=== PATIENT | male | born 1945 | race Caucasian/White ===

== ENCOUNTER 2022-01-29 13:33 | Observation (INO) ==
[2022-01-29 14:12] LABS: Basophils # (auto) 0.02 K/uL (0-0.2); Basophils % (auto) 0.3 %; Eosinophils # (auto) 0.04 K/uL (0-0.50); Eosinophils % (auto) 0.7 %; Hemoglobin 14.9 g/dl (14.0-18.0); Immature Granulocytes # (auto) 0.02 K/uL (0.00-0.02); Immature Granulocytes % (auto) 0.3 %; Lymphocytes # (auto) 1.05 K/uL (1.2-3.4); Lymphocytes % (auto) 17.7 %; Mean Corpuscular Hgb Conc 35.5 g/dL (32.0-36.0); Mean Corpuscular Volume 87.5 fL (80.0-100.0); Mean Platelet Volume 10.1 fL (9.4-12.4); Monocytes # (auto) 0.47 K/uL (0.24-0.82); Monocytes % (auto) 7.9 %; Neutrophils # (auto) 4.34 K/uL (1.4-6.5); Neutrophils % (auto) 73.1 %; Platelet Count 196 K/uL (130-400); RDW Coefficient of Variation 13.3 % (11.5-14.5); White Blood Count 5.94 K/ul (4.8-10.8)
[2022-01-29 14:37] LABS: Albumin Globulin Ratio 1.7 (0.9-2); Albumin Level 4.7 gm/dl (3.4-5.0); BUN Creatinine Ratio 14.3 (10-20); Bilirubin,Total 1.1 mg/dl (0.2-1.0); Calcium 9.5 mg/dl (8.5-10.1); Creatinine Clr Calc Pharmacy 65.4 ml/min; Est GFR (Non-African American) 68.1 ml/min; Globulin 2.7 gm/dl (2.5-4.0); Potassium 3.9 mmol/L (3.5-5.1); Total Protein 7.4 gm/dl (6.0-8.3)
[2022-01-29] MEDS ORDERED: OPTIRAY 320 500ml IV ONE (14:37)
--- NOTE | 2022-01-29 14:42 | XRay Report ---
XR chest 1V portable HISTORY: Atypical Chest Pain COMPARISON: None. FINDINGS: The lungs are clear. Cardiac silhouette is normal in size. No pleural effusions. No pneumot horax. IMPRESSION: No acute process. ACT 112: Negative or not required by law. Electronically signed by: Jack Arriaga M.D. 01/29/2022 2:41 PM
--- NOTE | 2022-01-29 14:43 | Emergency Department Note ---
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 Last he had some blurry vision of the right eye. He saw an sales and service specialist who sent him to an secretary of state who saw him today and diagnosed him with a central retinal artery occlusion. He was referred in for complete stroke work-up. He denies any headache. No weakness or numbness in the arms or legs. No chest pain or shortness of breath. No nausea, vomiting, or diarrhea. No other exacerbating or remitting factors. ROS: See above HPI for pertinent positives & negatives. A total of 10 systems reviewed and were otherwise negative. PAST MEDICAL HISTORY:See Below PAST SURGICAL HISTORY:See Below FAMILY HISTORY:See Below SOCIAL HISTORY:See Below HOME MEDICATIONS:See Below ALLERGIES:See Below VITALS:See Below PHYSICAL EXAMINATION: GENERAL: Sitting up in bed, alert, well appearing, well nourished, no distress, non-toxic EYE EXAM: normal conjunctiva. PERRL and EOM's intact. OROPHARYNX: no exudate, no erythema, lips, buccal mucosa, and tongue normal and mucous membranes are moist NECK: supple, no nuchal rigidity, no adenopathy, non-tender LUNGS: Clear to auscultation. Normal chest wall mechanics HEART: no murmurs, S1 normal and S2 normal ABDOMEN: abdomen soft, non-tender, normo-active bowel sounds, no masses, no rebound or guarding. BACK: Back is symmetrical on inspection and there is no deformity, no midline tenderness, no CVA tenderness. SKIN: no rashes and no bruising UPPER EXTREMITIES: upper extremities are grossly normal. LOWER EXTREMITIES: No pitting edema. NEURO EXAM: Normal sensorium, cranial nerves II-XI intact, normal speech, no weakness of arms, no weakness of legs. No drift. Finger to nose intact. Gross sensation intact. 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 Patient is completely neurologically intact other than the visual issues of his right eye. IV was established blood work is obtained. Labs show no significant leukocytosis or anemia. BMP along with LFTs bilirubin and lipase was remarkable for T bili slightly up at 1.1. CT as well as angios of the head and neck were performed. Blood pressures were elevated at 211. Allowed for permissive hypertension with the central retinal artery occlusion. CT showed short segment occlusions with multiple intracranial vessels. Systolic pressures remain just close to 200 and then jumped to 30. Patient was given aspirin. With 230 did order 5 hydralazine to bring the pressure back down below 220. Troponin was elevated and a question of this secondary to the elevated blood pressure but cannot be certain. He has no chest pain or shortness of breath. No other complaints at this time. Again we will t o try to allow for permissive hypertension in light of the recent stroke and multivessel disease within the brain. Triage Nursing notes reviewed. Limited review of prior medical records performed Vital Signs: reviewed and remarkable for HTN Differential diagnosis: Differential Diagnosis includes but is not limited to ischemic Stroke, hemorrhagic stroke, bells palsy, mass, neoplasm, migraine headache, seizure, subarachnoid hemorrhage, TIA, and transient global amnesia. ER treatment provided: See below Diagnostics interpreted by me: ECG: Sinus rhythm rate 83 Left axis No PVCs Septal Q waves QTC 455 Cardiac Monitoring: An order was placed for continuous cardiac monitoring. The monitor shows a rate of 89 with sinus rhythm. Laboratory studies: As stated above and show below. Imaging studies: CTs of the head and neck as described above and below Severe multifocal stenoses versus short segment occlusion with distal reconstitution within numerous intracranial vessels, as detailed above, including the right ophthalmic/retinal arteries. Statistically, this due to atherosclerosis. However, plaque is not evident by CT and therefore other etiologies such as vasculitis or vasospasm cannot be excluded. Consultation(s): Discussed with Dr. Orr for further evaluation Procedures: none Critical Care: None Past Med/Surg History Social History Smoking Status: Never smoker Preferred Language: Nicaraguan Feels Safe at Home: Yes Allergies Allergies Allergy/AdvReac Type Severity Reaction Status Date / Time No Known Allergies Allergy Unverified 01/29/22 15:58 Home Meds Home Medications Medication Instructions Recorded Confirmed cholecalciferol (vitamin D3) 25 25 mcg PO DAILY 01/29/22 01/29/22 mcg (1,000 unit) tablet (Vitamin D3) cyanocobalamin (vitamin B-12) 500 500 mcg PO DAILY 01/29/22 01/29/22 mcg tablet (Vitamin B-12) multivitamin 1 tab PO DAILY 01/29/22 01/29/22 Results & Data (ED) Vital Signs Vital Signs - 24 hr 01/29/22 13:36 01/29/22 13:55 01/29/22 13:57 Pulse Rate 99 H Pulse Rate [Left Apical] 87 Pulse Rhythm [Left Apical] Regular Pulse Strength [Left Apical] Normal Respiratory Rate 18 20 Respiratory Effort / Characteristics Non-Labored Spontaneous Respiratory Depth Normal Blood Pressure 218/133 H Blood Pressure [Left Arm] 212/123 H Blood Pressure Mean 161 Blood Pressure Mean [Left Arm] 152 Pulse Oximetry 94 96 97 Oxygen Delivery Method Room Air Room Air Room Air Sepsis Recent Fever Within 48 Hours No Sepsis New/Unexplained Change in Mental Status N/A Sepsis Action Taken by Nursing No Action Required 01/29/22 15:52 Pulse Rate Pulse Rate [Left Apical] 74 Pulse Rhythm [Left Apical] Pulse Strength [Left Apical] Respiratory Rate 18 Respiratory Effort / Characteristics Respiratory Depth Blood Pressure Blood Pressure [Left Arm] 230/135 H Blood Pressure Mean Blood Pressure Mean [Left Arm] 166 Pulse Oximetry 96 Oxygen Delivery Method Room Air Sepsis Recent Fever Within 48 Hours Sepsis New/Unexplained Change in Mental Status Sepsis Action Taken by Nursing Laboratory Data Result diagrams: 01/29/22 14:00 01/29/22 14:00 Lab Results 01/29/22 01/29/22 01/29/22 Range/Units 14:00 14:00 14:00 WBC 5.94 (4.8-10.8) K/ul RBC 4.80 (4.63-6.08) M/uL Hgb 14.9 (14.0-18.0) g/dl Hct 42.0 (40.1-51.0) % MCV 87.5 (80.0-100.0) fL MCH 31.0 (25.0-34.0) pg MCHC 35.5 (32.0-36.0) g/dL RDW Std Deviation 43.0 (36.4-46.3) fL RDW Coeff of Ellie 13.3 (11.5-14.5) % Plt Count 196 (130-400) K/uL MPV 10.1 (9.4-12.4) fL Immature Gran % (Auto) 0.3 % Neut % (Auto) 73.1 % Lymph % (Auto) 17.7 % Angelina % (Auto) 7.9 % Eos % (Auto) 0.7 % Baso % (Auto) 0.3 % Neut # (Auto) 4.34 (1.4-6.5) K/uL Lymph # (Auto) 1.05 L (1.2-3.4) K/uL Angelina # (Auto) 0.47 (0.24-0.82) K/uL Eos # (Auto) 0.04 (0-0.50) K/uL Baso # (Auto) 0.02 (0-0.2) K/uL Immature Gran # (Auto) 0.02 (0.00-0.02) K/uL Sodium 139 (136-145) mmol/L Potassium 3.9 (3.5-5.1) mmol/L Chloride 105 (98-107) mmol/L Carbon Dioxide 26 (21-32) mmol/L Anion Gap 8 (3-11) BUN 15 (6-23) mg/dl Creatinine 1.05 (0.6-1.4) mg/dl Est Cr Clr Drug Dosing 65.4 ml/min Est GFR ( Amer) 79.0 ml/min Est GFR (Non-Af Amer) 68.1 ml/min BUN/Creatinine Ratio 14.3 (10-20) Glucose 91 (70-99(Fasting)) mg/dl Calcium 9.5 (8.5-10.1) mg/dl Total Bilirubin 1.1 H (0.2-1.0) mg/dl AST 24 (13-39) U/L ALT 19 (7-52) U/L Alkaline Phosphatase 71 (34-104) U/L Troponin I High Sens 63.6 H* (0-20) pg/ml C-Reactive Protein < 0.50 (0-0.5) mg/dl Total Protein 7.4 (6.0-8.3) gm/dl Albumin 4.7 (3.4-5.0) gm/dl Globulin 2.7 (2.5-4.0) gm/dl Albumin/Globulin Ratio 1.7 (0.9-2) Lipase 24 (11-82) U/L SARS-CoV-2, RNA, NAAT (NEGATIVE) 01/29/22 Range/Units 14:48 WBC (4.8-10.8) K/ul RBC (4.63-6.08) M/uL Hgb (14.0-18.0) g/dl Hct (40.1-51.0) % MCV (80.0-100.0) fL MCH (25.0-34.0) pg MCHC (32.0-36.0) g/dL RDW Std Deviation (36.4-46.3) fL RDW Coeff of Ellie (11.5-14.5) % Plt Count (130-400) K/uL MPV (9.4-12.4) fL Immature Gran % (Auto) % Neut % (Auto) % Lymph % (Auto) % Angelina % (Auto) % Eos % (Auto) % Baso % (Auto) % Neut # (Auto) (1.4-6.5) K/uL Lymph # (Auto) (1.2-3.4) K/uL Angelina # (Auto) (0.24-0.82) K/uL Eos # (Auto) (0-0.50) K/uL Baso # (Auto) (0-0.2) K/uL Immature Gran # (Auto) (0.00-0.02) K/uL Sodium (136-145) mmol/L Potassium (3.5-5.1) mmol/L Chloride (98-107) mmol/L Carbon Dioxide (21-32) mmol/L Anion Gap (3-11) BUN (6-23) mg/dl Creatinine (0.6-1.4) mg/dl Est Cr Clr Drug Dosing ml/min Est GFR ( Amer) ml/min Est GFR (Non-Af Amer) ml/min BUN/Creatinine Ratio (10-20) Glucose (70-99(Fasting)) mg/dl Calcium (8.5-10.1) mg/dl Total Bilirubin (0.2-1.0) mg/dl AST (13-39) U/L ALT (7-52) U/L Alkaline Phosphatase (34-104) U/L Troponin I High Sens (0-20) pg/ml C-Reactive Protein (0-0.5) mg/dl Total Protein (6.0-8.3) gm/dl Albumin (3.4-5.0) gm/dl Globulin (2.5-4.0) gm/dl Albumin/Globulin Ratio (0.9-2) Lipase (11-82) U/L SARS-CoV-2, RNA, NAAT NEGATIVE (NEGATIVE) Administered Medications Discontinued Medications Ioversol (Optiray 320 500ml) 105 ml IV ONCE ONE Stop: 01/29/22 14:38 Last Admin: 01/29/22 14:38 Dose: 105 ml Documented By: [facility] Imaging Data Radiologist's Impression: Chest X-Ray 01/29/22 13:48 XR chest 1V portable HISTORY: Atypical Chest Pain COMPARISON: None. FINDINGS: The lungs are clear. Cardiac silhouette is normal in size. No pleural effusions. No pneumothorax. IMPRESSION: No acute process. ACT 112: Negative or not required by law. Electronically signed by: Jack Arriaga M.D. 01/29/2022 2:41 PM Head CTA 01/29/22 14:08 CT angio head wo/w CLINICAL HISTORY: Right eye central retinal artery occlusion. COMPARISON STUDY: No previous studies for comparison. TECHNIQUE: Unenhanced and arterial phase imaging of the head was performed. Intravenous injection of 105 cc Optiray 320 IV was uneventful. Sagittal and coronal reconstructions were viewed as well as maximal intensity projections on an independent 3-D workstation. Automated exposure control was utilized for the study. A dose lowering technique was utilized adhering to the principles of ALARA. FINDINGS: No acute intracranial hemorrhage, midline shift or mass effect is present. Ventricular system is unremarkable. Basal cisterns are patent. There are no extra axial collections. Hernandez-white differentiation is preserved. There are no findings to suggest acute dural sinus thrombosis or acute territorial infarct. Note is made of severe multifocal stenoses within the intracranial vessels. At several locations, there is possible short segment occlusion with distal reconstitution. These stenoses involve the right ophthalmic/retinal artery, left A2 segment, left sylvian branches, distal right vertebral artery and the bilateral posterior cerebral arteries. Multifocal vascular irregularity is noted. There is no intracranial aneurysm. No intraluminal thrombus is identified by CT. No visible plaque is identified by CT. Major dural sinuses are patent. There are no significant calvarial abnormalities. There is minimal ethmoid sinus mucosal thickening. IMPRESSION: 1. No acute intracranial hemorrhage or mass effect. 2. Severe multifocal stenoses versus short segment occlusion with distal reconstitution within numerous intracranial vessels, as detailed above, including the right ophthalmic/retinal arteries. Statistically, this due to atherosclerosis. However, plaque is not evident by CT and therefore other etiologies such as vasculitis or vasospasm cannot be excluded. ACT 112: Negative or not required by law. Electronically signed by: Kunal Cool M.D. 01/29/2022 3:06 PM Neck CTA 01/29/22 14:08 CT angio neck with con CLINICAL HISTORY: 76 years-old Male with crao r eye. Acute strokelike symptoms COMPARISON STUDY: CTA had of same day TECHNIQUE: Following the IV administration of 105 cc of Optiray, CT angiogram of the neck was performed from the aortic arch to the skull base. Images are reviewed in the axial, sagittal, and coronal planes. 3-D MIPS images are created and assessed. IV contrast was administered without complication. All measurements were calculated based on NASCET criteria. A dose lowering technique was utilized adhering to the principles of ALARA. FINDINGS: Imaged opacified pulmonary arterial tree is unremarkable. Atherosclerosis of the thoracic aortic arch. There is patency of the innominate and imaged subclavian arteries. Patent common carotid arteries. Mild atherosclerotic plaque of the left carotid bulb and proximal left ICA without significant stenosis. The internal carotid arteries are otherwise unremarkable and widely patent. Patent and codominant vertebral arteries with atherosclerotic plaque at the origin of the left vertebral artery. 60% focal stenosis of the V4 segment right vertebral artery, image 313. Lung apices are clear. No pneumothorax. Unremarkable soft tissues. Degenerative changes of the cervical spine. IMPRESSION: 1. 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 2. The carotid arteries are widely patent. 3. Please refer to the CTA head study of same day for additional findings. ACT 112: Negative or not required by law. The above report was generated using voice recognition software. It may contain grammatical, syntax or spelling errors. Electronically signed by: Dalton Padilla M.D. 01/29/2022 3:16 PM Discharge Plan Visit Data Chief Complaint: Visual Disturbance Stated Complaint: VISIUAL ISSUES ED Provider: Billy Mcneil Discharge Problem: CRAO (central retinal artery occlusion), HTN (hypertension), Elevated troponin Forms Stand Alone Forms: My [facility] Prescriptions Prescriptions: No Action multivitamin Tablet 1 tab PO DAILY cyanocobalamin (vitamin B-12) [Vitamin B-12] 500 mcg Tablet 500 mcg PO DAILY cholecalciferol (vitamin D3) [Vitamin D3] 25 mcg (1,000 unit) Tablet 25 mcg PO DAILY Referrals Referrals: PCP,NO [Physician] -
[2022-01-29 14:45] LABS: Troponin I High Sensitivity 63.6 pg/ml (0-20)
--- NOTE | 2022-01-29 15:08 | CT Scan Report ---
CT angio head wo/w CLINICAL HISTORY: Right eye central retinal artery occlusion. COMPARISON STUDY: No previous studies for comparison. TECHNIQUE: Unenhanced and arterial phase imaging of the head was performed. Intravenous injection of 105 cc Optiray 320 IV was uneventful. Sagittal and coronal reconstructions were viewed as well as max imal intensity projections on an independent 3-D workstation. Automated exposure control was utilized for the study. A dose lowering technique was utilized adhering to the principles of ALARA. FINDINGS: No acute intracranial hemorrhage, midline shift or mass effect is present. Ventricular syst em is unremarkable. Basal cisterns are patent. There are no extra axial collections. Hernandez-white diffe rentiation is preserved. There are no findings to suggest acute dural sinus thrombosis or acute melissa torial infarct. Note is made of severe multifocal stenoses within the intracranial vessels. At severa l locations, there is possible short segment occlusion with distal reconstitution. These stenoses inv olve the right ophthalmic/retinal artery, left A2 segment, left sylvian branches, distal right verteb ral artery and the bilateral posterior cerebral arteries. Multifocal vascular irregularity is noted. There is no intracranial aneurysm. No intraluminal thrombus is identified by CT. No visible plaque is identified by CT. Major dural sinuses are patent. There are no significant calvarial abnormalities. There is minimal ethmoid sinus mucosal thickening. IMPRESSION: 1. No acute intracranial hemorrhage or mass effect. 2. Severe multifocal stenoses versus short segment occlusion with distal reconstitution within michelle us intracranial vessels, as detailed above, including the right ophthalmic/retinal arteries. Statisti yessi, this due to atherosclerosis. However, plaque is not evident by CT and therefore other etiologi es such as vasculitis or vasospasm cannot be excluded. ACT 112: Negative or not required by law. Electronically signed by: Kunal Cool M.D. 01/29/2022 3:06 PM
--- NOTE | 2022-01-29 15:18 | CT Scan Report ---
CT angio neck with con CLINICAL HISTORY: 76 years-old Male with crao r eye. Acute strokelike symptoms COMPARISON STUDY: CTA had of same day TECHNIQUE: Following the IV administration of 105 cc of Optiray, CT angiogram of the neck was perform ed from the aortic arch to the skull base. Images are reviewed in the axial, sagittal, and coronal pl anes. 3-D MIPS images are created and assessed. IV contrast was administered without complication. Al l measurements were calculated based on NASCET criteria. A dose lowering technique was utilized adhe ring to the principles of ALARA. FINDINGS: Imaged opacified pulmonary arterial tree is unremarkable. Atherosclerosis of the thoracic aortic arch . There is patency of the innominate and imaged subclavian arteries. Patent common carotid arteries. Mild atherosclerotic plaque of the left carotid bulb and proximal left ICA without significant stenos is. The internal carotid arteries are otherwise unremarkable and widely patent. Patent and codominant vertebral arteries with atherosclerotic plaque at the origin of the left vertebral artery. 60% focal stenosis of the V4 segment right vertebral artery, image 313. Lung apices are clear. No pneumothorax. Unremarkable soft tissues. Degenerative changes of the cervic al spine. IMPRESSION: 1. 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 2. The carotid arteries are widely patent. 3. Please refer to the CTA head study of same day for additional findings. ACT 112: Negative or not required by law. The above report was generated using voice recognition software. It may contain grammatical, syntax o r spelling errors. Electronically signed by: Dalton Padilla M.D. 01/29/2022 3:16 PM
--- NOTE | 2022-01-29 15:30 | History & Physical Report ---
Date of Service January 29, 2022 Assessment & Plan (1) CRAO (central retinal artery occlusion): Plan: Central retinal artery occlusion ESR pending, CRP negative. No temporal pain/swelling/cording, low clinical suspicion for GCA -CTA: Severe multifocal stenosis versus short segment occlusion with distal reconstitution including right ophthalmic/retinal arteries These stenoses involve the right ophthalmic/retinal artery, left A2 segment, left sylvian branches, distal right vertebral artery and the bilateral posterior cerebral arteries. Multifocal vascular irregularity is noted. There is no intracranial aneurysm. No intraluminal thrombus is identified by CT. No visible plaque is identified by CT. Major dural sinuses are patent. There are no significant calvarial abnormalities. There is minimal ethmoid sinus mucosal thickening. - EKG: Normal sinus rhythm, no territorial ST segment changes, QTC 455 Recommend for completion of embolic work-up with MRI. TNKase not recommended at this time. Patient is with new hypertension Discussed with neurology. No indication for permissive hypertension 5 days out from symptoms, goal blood pressure would be under systolic 140 with gradual reduction from current pressure. We will try 10 mg of labetalol, if blood pressure not significantly improved will switch to nicardipine drip for titration ability. Aspirin given. Continue DAPT starting tomorrow, DAPT for 3 weeks then monotherapy. Lipid therapy, panel pending. No indication for transfer for intraocular pressure reduction or thrombectomy at this time Elevated troponin No clinical chest pain or anginal findings, no signs of ACS on admitting EKG Trend troponin overnight Echo pending Suspect demand/in the setting of hypertension Hypertension Not on baseline antihypertensives Patient hypertension management as above Goals of care: DNR/DNI. Extensive goals of care discussion had at bedside on admission. Any code situation he would want to be DNR/DNI. Outside of a code he would want interventions including intubation for protection of respiratory status or poor breathing, however would not want these measures prolonged for an extended period of time if it was unlikely for him to recover, or if he were to have a significantly compromised baseline quality of life. In emergency he would want his brother contacted for decision making DVT prophylaxis: Lovenox CODE STATUS: DNR/DNI. Okay with intubation for declining respiratory status, would not want prolonged interventions/ventilation if clinical improvement was unlikely or long-term quality of life was significantly compromised. Surrogate decision maker would be his brother. 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 Had blurry vision of the right eye which began last , 5 days ago. No headache, no other vision changes. Was referred by ophthalmology. Hypertensive but being allowed for permissive hypertension due to central retinal artery occlusion Blurry vision reading on Saturday night (5 days ago). had a cedeno haze across the right eye only. Saw an optomtrist who was concerned about retinal edema --> retinal specialist. Could not be seen until today. At that appointment had a retinal scan which showed partial retinal occlusion. Recommended standard of care treatment as stroke. Pattern of vision in R eye seems like lacunar of clearing with some haziness like waterdrops on glass. Thinks vision is improved in the cold a little -> more clearing areas. Whole vision is affected. No change in L eye. no other neurologic sx (denies h/a, focal weakness, n/t). 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 Mother had an idiopathic pulmonary fibrosis. Father with Aortic Stenosis. no autoimmune disease. CBC/BMP unremarkable Troponin high-sensitivity 63.6 on admission Medical History: Reviewed Medications: Reviewed Surgical History: Reviewed Allergies: Reviewed Social History: Reviewed Code Status: DNR/DNI. Allergies Allergy/AdvReac Type Severity Reaction Status Date / Time No Known Allergies Allergy Unverified 01/29/22 15:58 Home Medications Medication Instructions Recorded Confirmed Type cholecalciferol (vitamin D3) 25 25 mcg PO DAILY 01/29/22 01/29/22 History mcg (1,000 unit) tablet (Vitamin D3) cyanocobalamin (vitamin B-12) 500 500 mcg PO DAILY 01/29/22 01/29/22 History mcg tablet (Vitamin B-12) multivitamin 1 tab PO DAILY 01/29/22 01/29/22 History Past Med/Surg History Medical History (Updated 01/29/22 @ 16:42 by Donell Zacarias MD) CRAO (central retinal artery occlusion) HTN (hypertension) Social History Smoking Status: Never smoker Preferred Language: Luxembourgish Feels Safe at Home: Yes Review of Systems Review of Systems: All systems reviewed & are unremarkable except as noted in HPI & below Physical Exam Physical Exam: General: A&Ox3. NAD. Cooperative. HEENT: Atraumatic, normocephalic. Pulm: CTAB A&P. -wheezes, -rales, -rhonchi. Symmetrical chest rise. No increase in work of breathing. No respiratory distress. Cardiac: RRR, -mrg. Radial pulses intact and symmetrical. Abdominal: Nontender, nondistended, soft. BS present. CRANIAL NERVES: II: Pupils equal and reactive. R eye with central and peripheral decreased visual acuity with patches across whole visual field. III, IV, : EOM intact, no gaze preference or deviation, no nystagmus. V: normal sensation VII: no asymmetry, no nasolabial fold flattening VIII: normal hearing to speech IX, X: normal palatal elevation, no uvular deviation XI: 5/5 head turn XII: midline tongue protrusion MOTOR: RUE: 5/5 section leader strength LUE: 5/5 section leader strength RLE: 5/5 to ankle dorsiflexion/plantarflexion LLE: 5/5 to ankle dorsiflexion/plantarflexion SENSORY: Normal to touch in upper and lower extremities without deficit or asymmetry Results & Data Results & Data ([facility]) Vital Signs (Past 12 Hours) Vital Signs Pulse Pulse Resp BP BP Pulse Ox O2 Del Method 01/29/22 13:57 97 Room Air 01/29/22 13:55 87 20 212/123 H 96 Room Air 01/29/22 13:36 99 H 18 218/133 H 94 Room Air PG Care Time/CCT Total # of Minutes Spent Total Time Spent with Patient: Total time spent is greater than 50% in coordination of care (as documented) at patient's floor/unit and/or counseling patient: Coding Level of Care Code 67277 Initial Inpt Care Lvl 3 Diagnoses CRAO (central retinal artery occlusion) H34.10 HTN (hypertension) I10 Elevated troponin R77.8
[2022-01-29] MEDS ORDERED: hydrALAZINE HCL 20 MG/ML VIAL IV ONE (16:25)
[2022-01-29] MEDS ORDERED: ASPIRIN CHEW 324 MG PO STA (16:25)
[2022-01-29] MEDS ORDERED: LABETALOL HCL IV 5 MG/ML 20ML IV STA ×2 (16:45→16:56)
[2022-01-29] MEDS ORDERED: ASPIRIN 81 MG CHEW PO ONE (18:30)
[2022-01-29] MEDS ORDERED: PHARMACIST DISCHARGE MED REC CONSULT PRN (18:30)
[2022-01-29] MEDS ORDERED: ACETAMINOPHEN 325 MG TAB PO PRN (18:30)
[2022-01-29] MEDS ORDERED: STAT IV Infusion **Titration per Protocol STA (19:06)
[2022-01-29] MEDS ORDERED: niCARdipine 25 MG in SODIUM CHLORIDE 0.9% 240 ML IV SCH (19:15)
[2022-01-29] MEDS ORDERED: ENOXAPARIN INJ 40 MG/0.4 ML SYR SQ SCH (20:00)
[2022-01-29] MEDS ORDERED: hydrALAZINE HCL 20 MG/ML VIAL IV STA (23:34)
--- NOTE | 2022-01-29 23:57 | Critical Care Consultation ---
Date of Consultation January 29, 2022 Assessment & Plan (1) Hypertensive urgency: Impression: 76-year-old male without significant past medical history presents to the ICU blurry vision of the right eye for 5 days and found to have central retinal artery occlusion and currently in hypertensive urgency requiring nicardipine drip. Neuro - Central retinal artery occlusionCTA head with severe multifocal stenosis versus short segment occlusion with distal reconstitution including right ophthalmology/retinal arteries with stenosis involving the right ophthalmology/retinal artery, left A2 segment, left sylvian branches, distal right vertebral artery and bilateral posterior cerebral arteries. -Neurology consulted, no TNKase recommended as patient is 5 days with symptoms. Aspirin given in ED and starting on DAPT tomorrow for 3 weeks -Lipid panel and A1c pending -MRI pending -Echo pending Cardiac - Hypertensive urgencypatient with initial systolic blood pressure 230 on arrival to the ED. No prior history of hypertension suspect this is a compensatory to cerebrovascular accident. -Admitted to ICU for management of vasoactive drips -goal SBP range 180-200 for tonight. Currently patient is on nicardipine drip and will try to wean in favor of hydralazine/labetalol -Can likely transition to oral agents tomorrow Elevated troponinlikely demand due to hypertensive emergency. No ST elevation on EKG. Continue to trend for now Respiratory - No history of pulmonary disease. Patient denies smoking. Lungs clear to auscultation. Continuous monitoring on pulse ox. GI - Vegetarian diet RENAL/LYTES - Creatinine within normal limits. Monitor routine BMPs replete electrolytes as indicated. - Strict I's and O's ENDO - No history of diabetes or thyroid disease. Currently euglycemic. A1c pending. ICU hyperglycemic protocol HEME - H&H stable, monitor routine CBC ID - No negation for infectious process at this time LINES/IV ACCESS - Peripheral IVs DVT PROPHYLAXIS - SCDs, Lovenox Thank you for allowing us to participate in the care of this patient. Please refer to my attending physician's documentation for any further recommendations. (2) CRAO (central retinal artery occlusion): (3) Elevated troponin: (4) Vertebral artery stenosis: History of Present Illness Attending Physician: Donell Zacarias MD History of Present Illness 76-year-old male presented to the emergency department earlier this evening with complaints of right eye visual changes and blurriness. Patient states that he saw his oral surgeon after beginning to have sudden onset of blurry vision in his right eye 5 days ago. He was referred by his oral surgeon to retinal specialist for list with concern for retinal edema and had a retinal scan which showed partial retinal occlusion today. Patient was then referred to the emergency department and on arrival he was found to be significantly hypertensive with systolic blood pressure of 230. He was given labetalol x2 but remained significantly hypertensive and was started on nicardipine drip. CTA head concerning for severe multifocal stenosis or short segment occlusion involving right involvement/retinal artery, left A2 segment, left sylvian branches, distal right vertebral artery and bilateral posterior cerebral arteries. Case was discussed between primary team and neurology and he is starting DAPT for 3 weeks followed by monotherapy. He is being admitted to the ICU for management of vasoactive drip (nicardipine). On arrival to the ICU the patient is alert and oriented without acute distress. 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 He states that he has no other neurological symptoms other than right visual changes with blurry vision. He denies any headache, syncope, changes in equilibrium, weakness numbness or slurred speech. He is denies any recent illness, sore throat, fevers, cough, shortness of breath, chest pain or palpitations, abdominal pain, nausea vomiting or diarrhea, swelling in hands and feet. Patient states that prior to this he was in his normal state of health. Currently waiting nicardipine drip and will manage in the ICU for the time being. Allergies Allergy/AdvReac Type Severity Reaction Status Date / Time No Known Allergies Allergy Unverified 01/29/22 15:58 Home Medications Medication Instructions Recorded Confirmed Type cholecalciferol (vitamin D3) 25 25 mcg PO DAILY 01/29/22 01/29/22 History mcg (1,000 unit) tablet (Vitamin D3) cyanocobalamin (vitamin B-12) 500 500 mcg PO DAILY 01/29/22 01/29/22 History mcg tablet (Vitamin B-12) multivitamin 1 tab PO DAILY 01/29/22 01/29/22 History Patient History Medical History (Updated 01/29/22 @ 23:38 by JOHNNY Brasher) CRAO (central retinal artery occlusion) HTN (hypertension) Social History Smoking Status: Never smoker Hx Alcohol Use: No Hx Substance Use: No Preferred Language: Kazakh Communication Ability: Effective Tree And Shrub Technician Required: No Beliefs That Will Affect Care: None Current Living Situation: Alone Other Information That Helps Us Care for You: No Feels Safe at Home: Yes Safety Concerns: Feels Safe At This Time Assistive Devices: Glasses Review of Systems Review of Systems: All systems reviewed & are unremarkable except as noted in HPI & below Physical Exam Constitutional: WD/WN, vitals as above Eyes: normal visual lin by confrontation and PERRL; no nystagmus and no papilledema ENMT: external ear and nose normal, oropharynx normal Neck: trachea midline, no thyromegaly Respiratory: normal respiratory effort, lungs clear to auscultation Cardiovascular: RRR, no murmur, no edema Heart Sounds: normal S1 and normal S2 Vessels: no JVD Extremities: normal capillary refill Gastrointestinal (Abdomen): normal bowel sounds, soft, nontender, no hepatosplenomegaly Musculoskeletal: no cyanosis or clubbing, extremities motor strength 5/5 Skin: no rashes, warm and dry Neurologic: PERRL, EOMI, accommodation nl, no face palsy, no dysarthria Psychiatric: A+Ox3, euthymic affect Results & Data Results & Data ([facility]) Vital Signs (Past 12 Hours) Vital Signs Temp Pulse Pulse Resp BP BP BP 01/29/22 22:33 37.1 C 75 18 198/101 H 01/29/22 21:15 170/97 H 01/29/22 20:30 17 01/29/22 20:30 175/99 H 01/29/22 20:15 177/107 H 01/29/22 20:15 73 18 01/29/22 20:10 71 20 01/29/22 20:01 71 13 01/29/22 20:00 206/115 H 01/29/22 19:51 70 16 01/29/22 19:50 70 16 01/29/22 19:46 231/121 H 01/29/22 19:46 71 24 01/29/22 19:41 68 15 01/29/22 19:41 218/119 H 01/29/22 19:40 64 12 01/29/22 19:30 70 15 01/29/22 19:30 209/127 H 01/29/22 19:20 64 18 01/29/22 19:10 63 17 01/29/22 19:00 63 16 213/118 H 01/29/22 18:30 66 19 01/29/22 18:00 66 15 209/120 H 01/29/22 17:50 67 16 01/29/22 17:40 66 16 01/29/22 17:30 67 14 205/114 H 01/29/22 17:14 215/118 H 01/29/22 17:07 69 16 178/113 H 01/29/22 17:06 214/124 H 01/29/22 17:03 201/124 H 01/29/22 16:00 198/145 H 01/29/22 15:50 230/135 H 01/29/22 15:48 240/129 H 01/29/22 14:23 76 17 01/29/22 14:20 78 18 01/29/22 14:10 83 7 L 01/29/22 14:05 88 19 01/29/22 21:00 184/98 H 01/29/22 19:00 65 18 213/118 H 01/29/22 18:30 01/29/22 18:30 73 18 202/114 H 01/29/22 17:00 71 20 215/118 H 01/29/22 15:52 74 18 230/135 H 01/29/22 13:57 01/29/22 13:55 87 20 212/123 H 01/29/22 13:36 99 H 18 218/133 H Pulse Ox Pulse Ox O2 Del Method O2 Del Method 01/29/22 22:33 97 Room Air 01/29/22 21:15 01/29/22 20:30 01/29/22 20:30 01/29/22 20:15 01/29/22 20:15 01/29/22 20:10 01/29/22 20:01 01/29/22 20:00 01/29/22 19:51 01/29/22 19:50 01/29/22 19:46 01/29/22 19:46 01/29/22 19:41 01/29/22 19:41 01/29/22 19:40 01/29/22 19:30 01/29/22 19:30 01/29/22 19:20 01/29/22 19:10 01/29/22 19:00 01/29/22 18:30 01/29/22 18:00 01/29/22 17:50 01/29/22 17:40 01/29/22 17:30 01/29/22 17:14 01/29/22 17:07 01/29/22 17:06 01/29/22 17:03 01/29/22 16:00 01/29/22 15:50 01/29/22 15:48 01/29/22 14:23 98 01/29/22 14:20 95 01/29/22 14:10 95 01/29/22 14:05 98 01/29/22 21:00 01/29/22 19:00 97 Room Air 01/29/22 18:30 96 Room Air 01/29/22 18:30 96 Room Air 01/29/22 17:00 96 Room Air 01/29/22 15:52 96 Room Air 01/29/22 13:57 97 Room Air 01/29/22 13:55 96 Room Air 01/29/22 13:36 94 Room Air Coding Level of Care Code 05002 Inpt Consult Level 3 Diagnoses Hypertensive urgency I16.0 CRAO (central retinal artery occlusion) H34.10 Elevated troponin R77.8 Vertebral artery stenosis I65.09
[2022-01-30 06:01] LABS: Basophils # (auto) 0.03 K/uL (0-0.2); Basophils % (auto) 0.7 %; Eosinophils # (auto) 0.15 K/uL (0-0.50); Eosinophils % (auto) 3.3 %; Hematocrit (blood only) 40.1 % (40.1-51.0); Hemoglobin 14.4 g/dl (14.0-18.0); Immature Granulocytes # (auto) 0.01 K/uL (0.00-0.02); Immature Granulocytes % (auto) 0.2 %; Lymphocytes # (auto) 1.27 K/uL (1.2-3.4); Lymphocytes % (auto) 27.6 %; Mean Corpuscular Hgb Conc 35.9 g/dL (32.0-36.0); Mean Corpuscular Volume 86.2 fL (80.0-100.0); Mean Platelet Volume 9.9 fL (9.4-12.4); Monocytes # (auto) 0.51 K/uL (0.24-0.82); Monocytes % (auto) 11.1 %; Neutrophils # (auto) 2.63 K/uL (1.4-6.5); Neutrophils % (auto) 57.1 %; Platelet Count 193 K/uL (130-400); RDW Coefficient of Variation 13.3 % (11.5-14.5); RDW Standard Deviation 41.8 fL (36.4-46.3); Red Blood Count 4.65 M/uL (4.63-6.08)
[2022-01-30 06:21] LABS: BUN Creatinine Ratio 13.2 (10-20); Calcium 9.3 mg/dl (8.5-10.1); Creatinine Clr Calc Pharmacy 73.9 ml/min; Est GFR (African American) 93.9 ml/min; Potassium 3.4 mmol/L (3.5-5.1)
[2022-01-30] MEDS ORDERED: POTASSIUM CHLORIDE CRTAB 20 MEQ TABCR PO STA (06:53)
[2022-01-30] MEDS ORDERED: POTASSIUM CHLORIDE CRTAB 20 MEQ TABCR PO ONE (06:54)
--- NOTE | 2022-01-30 07:10 | Hospitalist Progress Note ---
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 CRAO (central retinal artery occlusion) Low clinical suspicion for GCA; ESR, CRP negative - EKG: NSR, no acute ischemic changes - CTA showed severe multifocal stenosis vs. short segment occlusion with distal reconstitution including right ophthalmic/retinal arteries. No intracranial aneurysm. No intraluminal thrombus is identified by CT. No visible plaque is identified by CT. - MRI brain showed no acute hemorrhage or ischemia - TNKase not administered d/t 3 days from onset of TIA symptoms - Pt began on 10 mg of labetalol, blood pressure not significantly improved, switched to nicardipine drip for titration ability - pt off nicardipine for 12 hrs; transferred to med/surg w/ tele - current BP regimen of lisinopril 10 mg daily, goal systolic 150-160 - Pt on DAPT w/ aspirin and clopidogrel x3 weeks then monotherapy - A1c 5.5 - elevated TG, total cholesterol, and LDL- began 40 mg atorvastatin - outpatient f/u with ophthalmology recommended - f/u BMP in 2-4 weeks d/t new ACEi Elevated troponin No clinical chest pain or anginal findings, no signs of ACS on admitting EKG Trop peaked at 84, most recent downtrended to 35.8 Echo pending Suspect demand in the setting of hypertension Hypertension Not on baseline antihypertensives Patient hypertension management as above Hyperlipidemia - began 40 mg atorvastatin (2) Elevated troponin: (3) HTN (hypertension): (4) Hyperlipidemia: Plan FEN: heart healthy, vegetarian DVT ppx: lovenox 40 mg daily Code: DNR Dispo: med/surg with tele Admission and Anticipated Discharge Date Admission Date: January 29, 2022 Subjective Pt is a 76 yo male with no significant PMH 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 Pt seen at bedside. Pt explains that he typically reads a lot and he noticed on that there was a severino haze in his right eye. He made an appt with his data processing systems consultant who tried to get him in to see a retinal specialists because there was concern for retinal edema. A retinal specialist was not available until Saturday. When he was seen by them, there was concern for a central retinal artery occlusion so he came to the hospital. Pt denies any other symptoms including headache, N/V, abdominal pain, chest pain, SOB, limb weakness, or loss of sensation. Physical Exam Constitutional: NAD. Systolic BP running high. Eyes: no conjunctival abnormality Respiratory: CTA bilaterally. No rhonchi, wheezing, or crackles. Non labored breathing. Cardiovascular: RRR. No murmur noted. No LE edema. Gastrointestinal (Abdomen): Nontender, +BS. No masses noted. Skin: no rashes, warm and dry Neurologic: No FND noted. Psychiatric: Alert. Mood and affect congruent. Results & Data Results & Data ([facility]) Vital Signs (Past 12 Hours) Vital Signs Temp Pulse Pulse Resp BP BP Pulse Ox 01/30/22 04:30 61 13 93 01/30/22 04:00 65 14 93 01/30/22 04:00 155/87 H 01/30/22 03:30 60 17 93 01/30/22 03:00 63 13 97 01/30/22 03:00 157/85 H 01/30/22 02:30 63 16 93 01/30/22 02:00 60 15 95 01/30/22 02:00 149/83 H 01/30/22 01:30 55 L 16 93 01/30/22 01:00 61 16 94 01/30/22 01:00 145/71 H 01/30/22 00:50 151/66 H 01/30/22 00:50 64 15 94 01/30/22 00:30 59 L 14 93 01/29/22 22:22 76 01/30/22 00:10 64 15 96 01/30/22 00:00 64 15 95 01/30/22 00:00 141/75 H 01/29/22 23:20 63 17 96 01/29/22 23:16 200/101 H 01/29/22 23:16 70 18 94 01/29/22 23:10 67 16 96 01/29/22 23:00 65 11 L 96 01/29/22 23:00 187/103 H 01/29/22 22:50 68 14 94 01/29/22 22:45 175/111 H 01/29/22 22:45 71 16 96 01/29/22 22:40 69 19 96 01/29/22 22:30 76 28 H 96 01/29/22 22:24 198/101 H 01/29/22 22:24 75 12 95 01/29/22 22:23 72 15 97 01/29/22 22:23 216/101 H 01/29/22 22:21 75 94 01/29/22 22:33 37.1 C 75 18 198/101 H 97 01/29/22 21:15 170/97 H 01/29/22 20:30 17 01/29/22 20:30 175/99 H 01/29/22 20:15 177/107 H 01/29/22 20:15 73 18 01/29/22 20:10 71 20 01/29/22 20:01 71 13 01/29/22 20:00 206/115 H 01/29/22 19:51 70 16 01/29/22 19:50 70 16 01/29/22 19:46 231/121 H 01/29/22 19:46 71 24 01/29/22 19:41 68 15 01/29/22 19:41 218/119 H 01/29/22 19:40 64 12 01/29/22 19:30 70 15 01/29/22 19:30 209/127 H 01/29/22 19:20 64 18 01/29/22 19:10 63 17 01/29/22 21:00 184/98 H O2 Del Method 01/30/22 04:30 01/30/22 04:00 01/30/22 04:00 01/30/22 03:30 01/30/22 03:00 01/30/22 03:00 01/30/22 02:30 01/30/22 02:00 01/30/22 02:00 01/30/22 01:30 01/30/22 01:00 01/30/22 01:00 01/30/22 00:50 01/30/22 00:50 01/30/22 00:30 01/29/22 22:22 01/30/22 00:10 01/30/22 00:00 01/30/22 00:00 01/29/22 23:20 01/29/22 23:16 01/29/22 23:16 01/29/22 23:10 01/29/22 23:00 01/29/22 23:00 01/29/22 22:50 01/29/22 22:45 01/29/22 22:45 01/29/22 22:40 01/29/22 22:30 01/29/22 22:24 01/29/22 22:24 01/29/22 22:23 01/29/22 22:23 01/29/22 22:21 01/29/22 22:33 Room Air 01/29/22 21:15 01/29/22 20:30 01/29/22 20:30 01/29/22 20:15 01/29/22 20:15 01/29/22 20:10 01/29/22 20:01 01/29/22 20:00 01/29/22 19:51 01/29/22 19:50 01/29/22 19:46 01/29/22 19:46 01/29/22 19:41 01/29/22 19:41 01/29/22 19:40 01/29/22 19:30 01/29/22 19:30 01/29/22 19:20 01/29/22 19:10 01/29/22 21:00 Resident Activity Tracking Resident Involvement: Resident Care Provided Care Provided: Adult Hospital Medicine
--- NOTE | 2022-01-30 07:24 | Magnetic Resonance Report ---
MRI OF THE BRAIN WITHOUT IV CONTRAST CLINICAL HISTORY: Strokelike symptoms. Vision loss. COMPARISON STUDY: CT of the brain dated 01/29/2022. TECHNIQUE: MRI of the brain was performed utilizing various T1 and T2-weighted sequences in the axial , sagittal, and coronal planes. IV contrast was not administered for this examination. FINDINGS: Brain parenchyma: There is age-related involutional change noting mild subcortical and periventricula r microangiopathic disease. There is no hemorrhage or mass effect. There is no restricted diffusion t o suggest acute ischemia. Hernandez-white matter differentiation is preserved. No extra-axial fluid collec tion is seen. The cerebellar tonsils are normal in configuration. Ventricles, sulci, and cisterns: Prominent secondary to involutional change. Pituitary and sella: Unremarkable. Intracranial vasculature: Normal flow voids are maintained at the skull base. Orbits: The bony orbits are grossly intact. Orbital contents are normal in appearance. Sinuses and mastoids: Clear. Calvarium: Unremarkable. Cervical cord: Partially visualized cervical spinal cord is normal in morphology and signal intensity . IMPRESSION: There is no hemorrhage, mass effect, or evidence of acute ischemia. ACT 112: Negative or not required by law. Electronically signed by: Vinod Singh M.D. 01/30/2022 7:23 AM
[2022-01-30 07:55] LABS: Estimated Average Glucose 111 mg/dl; Hemoglobin A1C 5.5 % (4.5-5.6)
[2022-01-30] MEDS ORDERED: ATORVASTATIN 40 MG TAB PO SCH (09:00)
[2022-01-30] MEDS ORDERED: CHOLECALCIFEROL 1,000 UNITS 25 MCG TAB PO SCH (09:00)
[2022-01-30] MEDS ORDERED: CLOPIDOGREL BISULFATE 75 MG TAB PO SCH (09:00)
[2022-01-30] MEDS ORDERED: ASPIRIN 81 MG ECTAB PO SCH (09:00)
[2022-01-30] MEDS ORDERED: MULTIVITAMIN TAB PO SCH (09:00)
[2022-01-30] MEDS ORDERED: CYANOCOBALAMIN (B-12) 500 MCG TABLET PO SCH (09:00)
[2022-01-30] MEDS ORDERED: METOPROLOL TARTRATE 25 MG TAB PO SCH (09:30)
--- NOTE | 2022-01-30 09:33 | Critical Care Progress Note ---
Date of Service January 30, 2022 Assessment & Plan (1) Hypertensive urgency: (2) CRAO (central retinal artery occlusion): (3) HTN (hypertension): Plan Impression: 76-year-old male without significant past medical history presents to the ICU blurry vision of the right eye for 5 days and found to have central retinal artery occlusion and currently in hypertensive urgency requiring nicardipine drip. Recommendations: 1. Central retinal artery occlusion: Neurology consult pending. Follow-up echocardiogram. Continue dual antiplatelet agent therapy. Out pt follow up with ophtho. The findings on the CT angiogram appear chronic in nature and I am not sure the patient would benefit from systemic anticoagulation other than dual antiplatelet therapy. 2. Hypertension: Now off Cardene for almost 12 hours. We will start metoprolol 12.5 mg daily with goal to maintain systolic blood pressure around 150-160 given central retinal artery occlusion. 3. Elevated troponin. Likely secondary to acute hypertension. Follow-up echocardiogram. Trop peaked, no indication to follow. Patient's been off of parenteral vasoactive medications and is stable to downgrade out of the intensive care unit. We will transfer care to the hospitalist service and critical care will sign off. Feel free to contact us if we can be of additional assistance. Admission and Anticipated Discharge Date Admission Date: January 29, 2022 Subjective Patient seen and examined. EMR reviewed. Discussed with critical care CHANNING from overnight as well as with bedside critical care nurse. The patient is awake alert and conversant. He has no new complaints. His visual field deficits are unchanged from prior. No other new focal neurological deficits. He denies chest pain palpitations or shortness of breath. Review of Systems Review of Systems: All systems reviewed & are unremarkable except as noted in Subjective Physical Exam Constitutional: WD/WN, vitals as above Neck: trachea midline, no thyromegaly Respiratory: normal respiratory effort, lungs clear to auscultation Cardiovascular: RRR, no murmur, no edema Gastrointestinal (Abdomen): normal bowel sounds, soft, nontender, no hepatosplenomegaly Musculoskeletal: Extremities: extremities normal to inspection Skin: no rashes, warm and dry Neurologic: Nonfocal exam Lymphatic: no cervical lymphadenopathy Results & Data Results & Data ([facility]) Vital Signs (Past 12 Hours) Vital Signs Temp Pulse Pulse Resp BP BP Pulse Ox 01/30/22 08:00 68 25 H 187/94 H 94 01/30/22 08:00 36.8 C 01/30/22 08:00 66 01/30/22 07:20 64 13 97 01/30/22 07:10 59 L 15 93 01/30/22 07:00 61 18 93 01/30/22 07:00 153/78 H 01/30/22 06:50 69 18 94 01/30/22 06:36 175/95 H 01/30/22 06:36 75 21 92 01/30/22 06:30 61 11 L 89 L 01/30/22 06:22 58 L 12 93 01/30/22 06:20 37.1 C 59 L 14 92 01/30/22 06:10 59 L 16 93 01/30/22 06:00 62 15 93 01/30/22 05:50 63 10 L 94 01/30/22 05:40 64 14 91 01/30/22 05:30 64 15 90 01/30/22 05:20 64 15 91 01/30/22 05:10 65 15 91 01/30/22 05:00 65 12 91 01/30/22 05:00 149/78 H 01/30/22 04:50 66 12 94 01/30/22 04:30 61 13 93 01/30/22 04:00 65 14 93 01/30/22 04:00 155/87 H 01/30/22 03:30 60 17 93 01/30/22 03:00 63 13 97 01/30/22 03:00 157/85 H 01/30/22 02:30 63 16 93 01/30/22 02:00 60 15 95 01/30/22 02:00 149/83 H 01/30/22 01:30 55 L 16 93 01/30/22 01:00 61 16 94 01/30/22 01:00 145/71 H 01/30/22 00:50 151/66 H 01/30/22 00:50 64 15 94 01/30/22 00:30 59 L 14 93 01/29/22 22:22 76 01/30/22 00:10 64 15 96 01/30/22 00:00 64 15 95 01/30/22 00:00 141/75 H 01/29/22 23:20 63 17 96 01/29/22 23:16 200/101 H 01/29/22 23:16 70 18 94 01/29/22 23:10 67 16 96 01/29/22 23:00 65 11 L 96 01/29/22 23:00 187/103 H 01/29/22 22:50 68 14 94 01/29/22 22:45 175/111 H 01/29/22 22:45 71 16 96 01/29/22 22:40 69 19 96 01/29/22 22:30 76 28 H 96 01/29/22 22:24 198/101 H 01/29/22 22:24 75 12 95 01/29/22 22:23 72 15 97 01/29/22 22:23 216/101 H 01/29/22 22:21 75 94 01/29/22 22:33 37.1 C 75 18 198/101 H 97 O2 Del Method 01/30/22 08:00 Room Air 01/30/22 08:00 01/30/22 08:00 01/30/22 07:20 01/30/22 07:10 01/30/22 07:00 01/30/22 07:00 01/30/22 06:50 01/30/22 06:36 01/30/22 06:36 01/30/22 06:30 01/30/22 06:22 01/30/22 06:20 01/30/22 06:10 01/30/22 06:00 01/30/22 05:50 01/30/22 05:40 01/30/22 05:30 01/30/22 05:20 01/30/22 05:10 01/30/22 05:00 01/30/22 05:00 01/30/22 04:50 01/30/22 04:30 01/30/22 04:00 01/30/22 04:00 01/30/22 03:30 01/30/22 03:00 01/30/22 03:00 01/30/22 02:30 01/30/22 02:00 01/30/22 02:00 01/30/22 01:30 01/30/22 01:00 01/30/22 01:00 01/30/22 00:50 01/30/22 00:50 01/30/22 00:30 01/29/22 22:22 01/30/22 00:10 01/30/22 00:00 01/30/22 00:00 01/29/22 23:20 01/29/22 23:16 01/29/22 23:16 01/29/22 23:10 01/29/22 23:00 01/29/22 23:00 01/29/22 22:50 01/29/22 22:45 01/29/22 22:45 01/29/22 22:40 01/29/22 22:30 01/29/22 22:24 01/29/22 22:24 01/29/22 22:23 01/29/22 22:23 01/29/22 22:21 01/29/22 22:33 Room Air Critical Care Results & Data Vital Signs (Past 12 Hours) Vital Signs Temp Pulse Pulse Resp BP BP Pulse Ox 01/30/22 08:00 68 25 H 187/94 H 94 01/30/22 08:00 36.8 C 01/30/22 08:00 66 01/30/22 07:20 64 13 97 01/30/22 07:10 59 L 15 93 01/30/22 07:00 61 18 93 01/30/22 07:00 153/78 H 01/30/22 06:50 69 18 94 01/30/22 06:36 175/95 H 01/30/22 06:36 75 21 92 01/30/22 06:30 61 11 L 89 L 01/30/22 06:22 58 L 12 93 01/30/22 06:20 37.1 C 59 L 14 92 01/30/22 06:10 59 L 16 93 01/30/22 06:00 62 15 93 01/30/22 05:50 63 10 L 94 01/30/22 05:40 64 14 91 01/30/22 05:30 64 15 90 01/30/22 05:20 64 15 91 01/30/22 05:10 65 15 91 01/30/22 05:00 65 12 91 01/30/22 05:00 149/78 H 01/30/22 04:50 66 12 94 01/30/22 04:30 61 13 93 01/30/22 04:00 65 14 93 01/30/22 04:00 155/87 H 01/30/22 03:30 60 17 93 01/30/22 03:00 63 13 97 01/30/22 03:00 157/85 H 01/30/22 02:30 63 16 93 01/30/22 02:00 60 15 95 01/30/22 02:00 149/83 H 01/30/22 01:30 55 L 16 93 01/30/22 01:00 61 16 94 01/30/22 01:00 145/71 H 01/30/22 00:50 151/66 H 01/30/22 00:50 64 15 94 01/30/22 00:30 59 L 14 93 01/29/22 22:22 76 01/30/22 00:10 64 15 96 01/30/22 00:00 64 15 95 01/30/22 00:00 141/75 H 01/29/22 23:20 63 17 96 01/29/22 23:16 200/101 H 01/29/22 23:16 70 18 94 01/29/22 23:10 67 16 96 01/29/22 23:00 65 11 L 96 01/29/22 23:00 187/103 H 01/29/22 22:50 68 14 94 01/29/22 22:45 175/111 H 01/29/22 22:45 71 16 96 01/29/22 22:40 69 19 96 01/29/22 22:30 76 28 H 96 01/29/22 22:24 198/101 H 01/29/22 22:24 75 12 95 01/29/22 22:23 72 15 97 01/29/22 22:23 216/101 H 01/29/22 22:21 75 94 01/29/22 22:33 37.1 C 75 18 198/101 H 97 O2 Del Method 01/30/22 08:00 Room Air 01/30/22 08:00 01/30/22 08:00 01/30/22 07:20 01/30/22 07:10 01/30/22 07:00 01/30/22 07:00 01/30/22 06:50 01/30/22 06:36 01/30/22 06:36 01/30/22 06:30 01/30/22 06:22 01/30/22 06:20 01/30/22 06:10 01/30/22 06:00 01/30/22 05:50 01/30/22 05:40 01/30/22 05:30 01/30/22 05:20 01/30/22 05:10 01/30/22 05:00 01/30/22 05:00 01/30/22 04:50 01/30/22 04:30 01/30/22 04:00 01/30/22 04:00 01/30/22 03:30 01/30/22 03:00 01/30/22 03:00 01/30/22 02:30 01/30/22 02:00 01/30/22 02:00 01/30/22 01:30 01/30/22 01:00 01/30/22 01:00 01/30/22 00:50 01/30/22 00:50 01/30/22 00:30 01/29/22 22:22 01/30/22 00:10 01/30/22 00:00 01/30/22 00:00 01/29/22 23:20 01/29/22 23:16 01/29/22 23:16 01/29/22 23:10 01/29/22 23:00 01/29/22 23:00 01/29/22 22:50 01/29/22 22:45 01/29/22 22:45 01/29/22 22:40 01/29/22 22:30 01/29/22 22:24 01/29/22 22:24 01/29/22 22:23 01/29/22 22:23 01/29/22 22:21 01/29/22 22:33 Room Air Lab & Micro Results (Past 24 Hours) RBC 4.65 M/uL (4.63-6.08) 01/30/22 WBC 4.60 K/ul (4.8-10.8) L 01/30/22 Hgb 14.4 g/dl (14.0-18.0) 01/30/22 Hct 40.1 % (40.1-51.0) 01/30/22 MCV 86.2 fL (80.0-100.0) 01/30/22 MCH 31.0 pg (25.0-34.0) 01/30/22 MCHC 35.9 g/dL (32.0-36.0) 01/30/22 RDW Standard Deviation 41.8 fL (36.4-46.3) 01/30/22 RDW Coefficient of Variation 13.3 % (11.5-14.5) 01/30/22 Plt Count 193 K/uL (130-400) 01/30/22 MPV 9.9 fL (9.4-12.4) 01/30/22 Neutrophils (%) (Auto) 57.1 % 01/30/22 Lymphocytes (%) (Auto) 27.6 % 01/30/22 Monocytes # (Auto) 0.51 K/uL (0.24-0.82) 01/30/22 Eosinophils # (Auto) 0.15 K/uL (0-0.50) 01/30/22 Immature Granulocyte % (Auto) 0.2 % 01/30/22 Neutrophils # (Auto) 2.63 K/uL (1.4-6.5) 01/30/22 Lymphocytes # (Auto) 1.27 K/uL (1.2-3.4) 01/30/22 Monocytes # (Auto) 0.51 K/uL (0.24-0.82) 01/30/22 Eosinophils # (Auto) 0.15 K/uL (0-0.50) 01/30/22 Basophils # (Auto) 0.03 K/uL (0-0.2) 01/30/22 Immature Granulocyte # (Auto) 0.01 K/uL (0.00-0.02) 2 Na 139 mmol/L (136-145) 01/30/22 K 3.4 mmol/L (3.5-5.1) L 01/30/22 Cl 105 mmol/L (98-107) 01/30/22 CO2 27 mmol/L (21-32) 01/30/22 Anion Gap 7 (3-11) 01/30/22 BUN 12 mg/dl (6-23) 01/30/22 Creatinine 0.91 mg/dl (0.6-1.4) 01/30/22 Estimated GFR ( Amer) 93.9 ml/min 01/30/22 Estimated GFR (Non-Af Amer) 81.0 ml/min 01/30/22 BUN/Creatinine Ratio 13.2 (10-20) 01/30/22 Glu 97 mg/dl (70-99(Fasting)) 01/30/22 Ca 9.3 mg/dl (8.5-10.1) 01/30/22 Total Bilirubin 1.1 mg/dl (0.2-1.0) H 01/29/22 AST 24 U/L (13-39) 01/29/22 ALT 19 U/L (7-52) 01/29/22 Alkaline Phosphatase 71 U/L (34-104) 01/29/22 TP 7.4 gm/dl (6.0-8.3) 01/29/22 Albumin 4.7 gm/dl (3.4-5.0) 01/29/22 Globulin 2.7 gm/dl (2.5-4.0) 01/29/22 Albumin/Globulin Ratio 1.7 (0.9-2) 01/29/22 Calcium Level 9.3 mg/dl (8.5-10.1) 01/30/22 05:46 Diagnostic Findings (Past 24 Hours) Chest X-Ray 01/29/22 13:48 XR chest 1V portable HISTORY: Atypical Chest Pain COMPARISON: None. FINDINGS: The lungs are clear. Cardiac silhouette is normal in size. No pleural effusions. No pneumothorax. IMPRESSION: No acute process. ACT 112: Negative or not required by law. Electronically signed by: Jack Arriaga M.D. 01/29/2022 2:41 PM Head CTA 01/29/22 14:08 CT angio head wo/w CLINICAL HISTORY: Right eye central retinal artery occlusion. COMPARISON STUDY: No previous studies for comparison. TECHNIQUE: Unenhanced and arterial phase imaging of the head was performed. Intravenous injection of 105 cc Optiray 320 IV was uneventful. Sagittal and coronal reconstructions were viewed as well as maximal intensity projections on an independent 3-D workstation. Automated exposure control was utilized for the study. A dose lowering technique was utilized adhering to the principles of ALARA. FINDINGS: No acute intracranial hemorrhage, midline shift or mass effect is present. Ventricular system is unremarkable. Basal cisterns are patent. There are no extra axial collections. Hernandez-white differentiation is preserved. There are no findings to suggest acute dural sinus thrombosis or acute territorial infarct. Note is made of severe multifocal stenoses within the intracranial vessels. At several locations, there is possible short segment occlusion with distal reconstitution. These stenoses involve the right ophthalmic/retinal josefa ry, left A2 segment, left sylvian branches, distal right vertebral artery and the bilateral posterior cerebral arteries. Multifocal vascular irregularity is noted. There is no intracranial aneurysm. No intraluminal thrombus is identified by CT. No visible plaque is identified by CT. Major dural sinuses are patent. There are no significant calvarial abnormalities. There is minimal ethmoid sinus mucosal thickening. IMPRESSION: 1. No acute intracranial hemorrhage or mass effect. 2. Severe multifocal stenoses versus short segment occlusion with distal reconstitution within numerous intracranial vessels, as detailed above, including the right ophthalmic/retinal arteries. Statistically, this due to atherosclerosis. However, plaque is not evident by CT and therefore other etiologies such as vasculitis or vasospasm cannot be excluded. ACT 112: Negative or not required by law. Electronically signed by: Kunal Cool M.D. 01/29/2022 3:06 PM Neck CTA 01/29/22 14:08 CT angio neck with con CLINICAL HISTORY: 76 years-old Male with crao r eye. Acute strokelike symptoms COMPARISON STUDY: CTA had of same day TECHNIQUE: Following the IV administration of 105 cc of Optiray, CT angiogram of the neck was performed from the aortic arch to the skull base. Images are reviewed in the axial, sagittal, and coronal planes. 3-D MIPS images are created and assessed. IV contrast was administered without complication. All measurements were calculated based on NASCET criteria. A dose lowering technique was utilized adhering to the principles of ALARA. FINDINGS: Imaged opacified pulmonary arterial tree is unremarkable. Atherosclerosis of the thoracic aortic arch. There is patency of the innominate and imaged subclavian arteries. Patent common carotid arteries. Mild atherosclerotic plaque of the left carotid bulb and proximal left ICA without significant stenosis. The internal carotid arteries are otherwise unremarkable and widely patent. Patent and codominant vertebral arteries with atherosclerotic plaque at the origin of the left vertebral artery. 60% focal stenosis of the V4 segment right vertebral artery, image 313. Lung apices are clear. No pneumothorax. Unremarkable soft tissues. Degenerative changes of the cervical spine. IMPRESSION: 1. 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 2. The carotid arteries are widely patent. 3. Please refer to the CTA head study of same day for additional findings. ACT 112: Negative or not required by law. The above report was generated using voice recognition software. It may contain grammatical, syntax or spelling errors. Electronically signed by: Dalton Padilla M.D. 01/29/2022 3:16 PM Brain MRI 01/29/22 18:30 MRI OF THE BRAIN WITHOUT IV CONTRAST CLINICAL HISTORY: Strokelike symptoms. Vision loss. COMPARISON STUDY: CT of the brain dated 01/29/2022. TECHNIQUE: MRI of the brain was performed utilizing various T1 and T2-weighted sequences in the axial, sagittal, and coronal planes. IV contrast was not administered for this examination. FINDINGS: Brain parenchyma: There is age-related involutional change noting mild subcortical and periventricular microangiopathic disease. There is no hemorrhage or mass effect. There is no restricted diffusion to suggest acute ischemia. Hernandez-white matter differentiation is preserved. No extra-axial fluid collection is seen. The cerebellar tonsils are normal in configuration. Ventricles, sulci, and cisterns: Prominent secondary to involutional change. Pituitary and sella: Unremarkable. Intracranial vasculature: Normal flow voids are maintained at the skull base. Orbits: The bony orbits are grossly intact. Orbital contents are normal in appearance. Sinuses and mastoids: Clear. Calvarium: Unremarkable. Cervical cord: Partially visualized cervical spinal cord is normal in morphology and signal intensity. IMPRESSION: There is no hemorrhage, mass effect, or evidence of acute ischemia. ACT 112: Negative or not required by law. Electronically signed by: Vinod Singh M.D. 01/30/2022 7:23 AM I & O Totals 24 Hours 01/29/22 01/30/22 01/31/22 06:59 06:59 06:59 Intake Total 360.834 / 360.834 Balance 360.834 / 360.834 Cumulative 01/29/22 13:33 thru 01/30/22 06:00 Intake Total 360.834 Balance 360.834 RT Ventilator Mngmt (Last Documented) Ventilator Ordered Settings Respiratory Rate 25 01/30/22 08:00 Ventilator - PT Measurements Respiratory Rate 25 Coding Level of Care Code 05034 Subseq Hosp Care Lvl 3 Diagnoses Hypertensive urgency I16.0 CRAO (central retinal artery occlusion) H34.10 HTN (hypertension) I10
[2022-01-30] MEDS: ICU Protocol for HYPERglycemia SCH ×3 (10:40→16:39)
--- NOTE | 2022-01-30 14:19 | Neurology Consultation ---
Date of Consultation January 30, 2022 Assessment & Plan (1) CRAO (central retinal artery occlusion): Impression: The patient had gradually worsening right eye vision without visual field deficit or additional neurological symptoms. Ophthalmology examination including retinal scan was consistent with right central artery partial occlusion and related ischemia. There is no history, symptoms, or laboratory results to suggest vasculitis. Imaging studies consistent with intracranial multivessel atherosclerosis, which was the likely cause of the patient's ophthalmic artery occlusion. Recommendations: Double antiplatelet treatment with aspirin 81 mg and Plavix and 5 mg daily for 3 weeks. Then, he should stay on aspirin 81 mg daily. There is no indication for vascular intervention at this time. Management of hypertension. Goal blood pressure is below 140/85. Because of significant intracranial atherosclerosis, we should avoid hypotension. Management of hyperlipidemia. Goal LDL level is lower than 70. I agree with Lipitor 40 mg at bedtime. Echocardiogram inpatient or outpatient. The patient is neurologically stable and can be discharged home after management of hypertensive urgency. Follow-up with neurology clinic. I will contact with [facility] neurology clinic to set up a follow-up appointment. (2) HTN (hypertension): Impression: The patient systolic blood pressure was significantly elevated up to 230 systolic on admission. He is started on treatment with gradually lowering blood pressure. Recommendations: As seen above. (3) Hypertensive urgency: Impression: As seen above. (4) Intracranial atherosclerosis: Impression: CT angiography of neck showed 1 no vertebral artery stenosis, which is not critical. However, CT angiography of head showed multivessel, atherosclerotic narrowings. Recommendations: Antiplatelet treatment as recommended above. Management of hypertension and hyperlipidemia. There is no indication for vascular intervention at this time. (5) Hyperlipidemia: Impression: As seen above. Plan Thank you for the consultation. 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 He was initially seen by perch mender, and was referred to education courses sales representative. Retinal scan was consistent with central retinal artery partial occlusion, and the patient was referred to the emergency department, for stroke work-up. The patient denies any additional neurological symptoms including double vision, eye pain, scalp tenderness, history of stroke symptoms or migraines. Initial head CT was negative for acute pathology. CT angiography of the neck did not show significant stenosis or thrombus. However, cranial CT angiography showed multifocal, multivessel, atherosclerotic narrowings including right retinal artery. There was no intra-arterial thrombus. Initially, vasculitis was considered in differential, however, the patient has no history, or symptoms to suggest vasculitis, primarily temporal arteritis. ESR and CRP are within normal range. On admission, the patient's blood pressure was significantly elevated up to 230 systolic. He was started on blood pressure medications to lower blood pressure gradually. Lipid panel showed elevated serum lipids, and he is started on Lipitor. After discussing case with on-call neurologist, the patient was started on double antiplatelet treatment on admission. Brain MRI did not show acute or chronic cerebrovascular accident. He reports that his vision has been partially improved. He can count fingers, and recognize faces with right eye. The patient denies any additional cranial nerve symptoms or eye pain. I have reviewed the patient's chart including imaging studies and visualized them personally. I have discussed the case with Dr. Robin, and answer his questions in detail. Allergies Allergy/AdvReac Type Severity Reaction Status Date / Time No Known Allergies Allergy Unverified 01/29/22 15:58 Home Medications Medication Instructions Recorded Confirmed Type cholecalciferol (vitamin D3) 25 25 mcg PO DAILY 01/29/22 01/29/22 History mcg (1,000 unit) tablet (Vitamin D3) cyanocobalamin (vitamin B-12) 500 500 mcg PO DAILY 01/29/22 01/29/22 History mcg tablet (Vitamin B-12) multivitamin 1 tab PO DAILY 01/29/22 01/29/22 History Patient History Medical History CRAO (central retinal artery occlusion) HTN (hypertension) Social History Smoking Status: Never smoker Hx Alcohol Use: No Hx Substance Use: No Preferred Language: Uzbek Communication Ability: Effective 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 HEENT: Normal exam with inspection. Slight right APD. CV: Hearth rhtyhm is regular. Neck: Supple, no carotid bruits. Lungs: Non-labored and comfortable breathing. Abdomen: Soft, non-tender, non-distended. Skin: No rash or ecchymosis. Extremities: No edema or cyanosis NEUROLOGICAL EXAMINATION: Mental Status: Alert and oriented to place, person and time. Cranial Nerves: II-XII are intact. No nystagmus. Right visual acuity is impaired but still count fingers and recognize faces. No visual field deficit. Funduscopy: Normal looking optic discs and right eye pale retina. Motor: 5/5 in all extremities without asymmetry. DTRs: 2+ all. No Babinsky. Tone: Normal without spasticity or rigidity. Sensory: Intact to all sensory modalities. Coordination: No dysmetria with FTN testing. Speech: Fluent. Comprehension is intact. Gait: Not assessed but reportedly normal Musculoskeletal: Normal muscle bulk, no atrophy. Results & Data ([facility]) Vital Signs (Past 12 Hours) Vital Signs Temp Pulse Pulse Resp BP BP Pulse Ox 01/30/22 12:02 36.6 C 63 18 166/82 H 97 01/30/22 08:00 68 25 H 187/94 H 94 01/30/22 08:00 36.8 C 01/30/22 08:00 66 01/30/22 07:20 64 13 97 01/30/22 07:10 59 L 15 93 01/30/22 07:00 61 18 93 01/30/22 07:00 153/78 H 01/30/22 06:50 69 18 94 01/30/22 06:36 175/95 H 01/30/22 06:36 75 21 92 01/30/22 06:30 61 11 L 89 L 01/30/22 06:22 58 L 12 93 01/30/22 06:20 37.1 C 59 L 14 92 01/30/22 06:10 59 L 16 93 01/30/22 06:00 62 15 93 01/30/22 05:50 63 10 L 94 01/30/22 05:40 64 14 91 01/30/22 05:30 64 15 90 01/30/22 05:20 64 15 91 01/30/22 05:10 65 15 91 01/30/22 05:00 65 12 91 01/30/22 05:00 149/78 H 01/30/22 04:50 66 12 94 01/30/22 04:30 61 13 93 01/30/22 04:00 65 14 93 01/30/22 04:00 155/87 H 01/30/22 03:30 60 17 93 01/30/22 03:00 63 13 97 01/30/22 03:00 157/85 H 01/30/22 02:30 63 16 93 01/30/22 02:00 60 15 95 01/30/22 02:00 149/83 H O2 Del Method 01/30/22 12:02 Room Air 01/30/22 08:00 Room Air 01/30/22 08:00 01/30/22 08:00 01/30/22 07:20 01/30/22 07:10 01/30/22 07:00 01/30/22 07:00 01/30/22 06:50 01/30/22 06:36 01/30/22 06:36 01/30/22 06:30 01/30/22 06:22 01/30/22 06:20 01/30/22 06:10 01/30/22 06:00 01/30/22 05:50 01/30/22 05:40 01/30/22 05:30 01/30/22 05:20 01/30/22 05:10 01/30/22 05:00 01/30/22 05:00 01/30/22 04:50 01/30/22 04:30 01/30/22 04:00 01/30/22 04:00 01/30/22 03:30 01/30/22 03:00 01/30/22 03:00 01/30/22 02:30 01/30/22 02:00 01/30/22 02:00 Laboratory Results Laboratory Results - last 24 hr 01/29/22 01/29/22 01/29/22 14:00 14:00 14:00 WBC 5.94 RBC 4.80 Hgb 14.9 Hct 42.0 MCV 87.5 MCH 31.0 MCHC 35.5 RDW Std Deviation 43.0 RDW Coeff of Ellie 13.3 Plt Count 196 MPV 10.1 Immature Gran % (Auto) 0.3 Neut % (Auto) 73.1 Lymph % (Auto) 17.7 [place] % (Auto) 7.9 Eos % (Auto) 0.7 Baso % (Auto) 0.3 Neut # (Auto) 4.34 Lymph # (Auto) 1.05 L [place] # (Auto) 0.47 Eos # (Auto) 0.04 Baso # (Auto) 0.02 Immature Gran # (Auto) 0.02 ESR 10 Sodium 139 Potassium 3.9 Chloride 105 Carbon Dioxide 26 Anion Gap 8 BUN 15 Creatinine 1.05 Est Cr Clr Drug Dosing 65.4 Est GFR ( Amer) 79.0 Est GFR (Non-Af Amer) 68.1 BUN/Creatinine Ratio 14.3 Glucose 91 Estimat Average Glucose Hemoglobin A1c Calcium 9.5 Total Bilirubin 1.1 H AST 24 ALT 19 Alkaline Phosphatase 71 Troponin I High Sens 63.6 H* C-Reactive Protein Total Protein 7.4 Albumin 4.7 Globulin 2.7 Albumin/Globulin Ratio 1.7 Triglycerides Cholesterol LDL Cholesterol, Calc VLDL Cholesterol, Calc HDL Cholesterol Cholesterol/HDL Ratio Lipase 24 Nasal Screen MRSA (PCR) SARS-CoV-2, RNA, NAAT 01/29/22 01/29/22 01/29/22 14:00 14:48 18:54 WBC RBC Hgb Hct MCV MCH MCHC RDW Std Deviation RDW Coeff of Ellie Plt Count MPV Immature Gran % (Auto) Neut % (Auto) Lymph % (Auto) [place] % (Auto) Eos % (Auto) Baso % (Auto) Neut # (Auto) Lymph # (Auto) [place] # (Auto) Eos # (Auto) Baso # (Auto) Immature Gran # (Auto) ESR Sodium Potassium Chloride Carbon Dioxide Anion Gap BUN Creatinine Est Cr Clr Drug Dosing Est GFR ( Amer) Est GFR (Non-Af Amer) BUN/Creatinine Ratio Glucose Estimat Average Glucose Hemoglobin A1c Calcium Total Bilirubin AST ALT Alkaline Phosphatase Troponin I High Sens 84.6 H* D C-Reactive Protein < 0.50 Total Protein Albumin Globulin Albumin/Globulin Ratio Triglycerides Cholesterol LDL Cholesterol, Calc VLDL Cholesterol, Calc HDL Cholesterol Cholesterol/HDL Ratio Lipase Nasal Screen MRSA (PCR) SARS-CoV-2, RNA, NAAT NEGATIVE 01/29/22 01/29/22 01/30/22 23:35 Unknown 05:46 WBC 4.60 L RBC 4.65 Hgb 14.4 Hct 40.1 MCV 86.2 MCH 31.0 MCHC 35.9 RDW Std Deviation 41.8 RDW Coeff of Ellie 13.3 Plt Count 193 MPV 9.9 Immature Gran % (Auto) 0.2 Neut % (Auto) 57.1 Lymph % (Auto) 27.6 [place] % (Auto) 11.1 Eos % (Auto) 3.3 Baso % (Auto) 0.7 Neut # (Auto) 2.63 Lymph # (Auto) 1.27 [place] # (Auto) 0.51 Eos # (Auto) 0.15 Baso # (Auto) 0.03 Immature Gran # (Auto) 0.01 ESR Sodium Potassium Chloride Carbon Dioxide Anion Gap BUN Creatinine Est Cr Clr Drug Dosing Est GFR ( Amer) Est GFR (Non-Af Amer) BUN/Creatinine Ratio Glucose Estimat Average Glucose Hemoglobin A1c Calcium Total Bilirubin AST ALT Alkaline Phosphatase Troponin I High Sens 60.8 H* D C-Reactive Protein Total Protein Albumin Globulin Albumin/Globulin Ratio Triglycerides Cholesterol LDL Cholesterol, Calc VLDL Cholesterol, Calc HDL Cholesterol Cholesterol/HDL Ratio Lipase Nasal Screen MRSA (PCR) Negative SARS-CoV-2, RNA, NAAT 01/30/22 01/30/22 01/30/22 05:46 05:46 05:46 WBC RBC Hgb Hct MCV MCH MCHC RDW Std Deviation RDW Coeff of Ellie Plt Count MPV Immature Gran % (Auto) Neut % (Auto) Lymph % (Auto) [place] % (Auto) Eos % (Auto) Baso % (Auto) Neut # (Auto) Lymph # (Auto) [place] # (Auto) Eos # (Auto) Baso # (Auto) Immature Gran # (Auto) ESR Sodium 139 Potassium 3.4 L Chloride 105 Carbon Dioxide 27 Anion Gap 7 BUN 12 Creatinine 0.91 Est Cr Clr Drug Dosing 73.9 Est GFR ( Amer) 93.9 Est GFR (Non-Af Amer) 81.0 BUN/Creatinine Ratio 13.2 Glucose 97 Estimat Average Glucose 111 Hemoglobin A1c 5.5 Calcium 9.3 Total Bilirubin AST ALT Alkaline Phosphatase Troponin I High Sens 47.6 H D C-Reactive Protein Total Protein Albumin Globulin Albumin/Globulin Ratio Triglycerides 266 H Cholesterol 211 H LDL Cholesterol, Calc 128 VLDL Cholesterol, Calc 53 H HDL Cholesterol 30 Cholesterol/HDL Ratio 7.0 H Lipase Nasal Screen MRSA (PCR) SARS-CoV-2, RNA, NAAT 01/30/22 11:42 WBC RBC Hgb Hct MCV MCH MCHC RDW Std Deviation RDW Coeff of Ellie Plt Count MPV Immature Gran % (Auto) Neut % (Auto) Lymph % (Auto) [place] % (Auto) Eos % (Auto) Baso % (Auto) Neut # (Auto) Lymph # (Auto) [place] # (Auto) Eos # (Auto) Baso # (Auto) Immature Gran # (Auto) ESR Sodium Potassium Chloride Carbon Dioxide Anion Gap BUN Creatinine Est Cr Clr Drug Dosing Est GFR ( Amer) Est GFR (Non-Af Amer) BUN/Creatinine Ratio Glucose Estimat Average Glucose Hemoglobin A1c Calcium Total Bilirubin AST ALT Alkaline Phosphatase Troponin I High Sens 35.8 H D C-Reactive Protein Total Protein Albumin Globulin Albumin/Globulin Ratio Triglycerides Cholesterol LDL Cholesterol, Calc VLDL Cholesterol, Calc HDL Cholesterol Cholesterol/HDL Ratio Lipase Nasal Screen MRSA (PCR) SARS-CoV-2, RNA, NAAT Diagnostic Findings Chest X-Ray 01/29/22 13:48 XR chest 1V portable HISTORY: Atypical Chest Pain COMPARISON: None. FINDINGS: The lungs are clear. Cardiac silhouette is normal in size. No pleural effusions. No pneumothorax. IMPRESSION: No acute process. ACT 112: Negative or not required by law. Electronically signed by: Jack Arriaga M.D. 01/29/2022 2:41 PM Head CTA 01/29/22 14:08 CT angio head wo/w CLINICAL HISTORY: Right eye central retinal artery occlusion. COMPARISON STUDY: No previous studies for comparison. TECHNIQUE: Unenhanced and arterial phase imaging of the head was performed. Intravenous injection of 105 cc Optiray 320 IV was uneventful. Sagittal and coronal reconstructions were viewed as well as maximal intensity projections on an independent 3-D workstation. Automated exposure control was utilized for the study. A dose lowering technique was utilized adhering to the principles of ALARA. FINDINGS: No acute intracranial hemorrhage, midline shift or mass effect is present. Ventricular system is unremarkable. Basal cisterns are patent. There are no extra axial collections. Hernandez-white differentiation is preserved. There are no findings to suggest acute dural sinus thrombosis or acute territorial infarct. Note is made of severe multifocal stenoses within the intracranial vessels. At several locations, there is possible short segment occlusion with distal reconstitution. These stenoses involve the right ophthalmic/retinal artery, left A2 segment, left sylvian branches, distal right vertebral artery and the bilateral posterior cerebral arteries. Multifocal vascular irregularity is noted. There is no intracranial aneurysm. No intraluminal thrombus is identified by CT. No visible plaque is identified by CT. Major dural sinuses are patent. There are no significant calvarial abnormalities. There is minimal ethmoid sinus mucosal thickening. IMPRESSION: 1. No acute intracranial hemorrhage or mass effect. 2. Severe multifocal stenoses versus short segment occlusion with distal reconstitution within numerous intracranial vessels, as detailed above, including the right ophthalmic/retinal arteries. Statistically, this due to atherosclerosis. However, plaque is not evident by CT and therefore other etiologies such as vasculitis or vasospasm cannot be excluded. ACT 112: Negative or not required by law. Electronically signed by: Kunal Cool M.D. 01/29/2022 3:06 PM Neck CTA 01/29/22 14:08 CT angio neck with con CLINICAL HISTORY: 76 years-old Male with crao r eye. Acute strokelike symptoms COMPARISON STUDY: CTA had of same day TECHNIQUE: Following the IV administration of 105 cc of Optiray, CT angiogram of the neck was performed from the aortic arch to the skull base. Images are reviewed in the axial, sagittal, and coronal planes. 3-D MIPS images are created and assessed. IV contrast was administered without complication. All measurements were calculated based on NASCET criteria. A dose lowering technique was utilized adhering to the principles of ALARA. FINDINGS: Imaged opacified pulmonary arterial tree is unremarkable. Atherosclerosis of the thoracic aortic arch. There is patency of the innominate and imaged subclavian arteries. Patent common carotid arteries. Mild atherosclerotic plaque of the left carotid bulb and proximal left ICA without significant stenosis. The internal carotid arteries are otherwise unremarkable and widely patent. Patent and codominant vertebral arteries with atherosclerotic plaque at the origin of the left vertebral artery. 60% focal stenosis of the V4 segment right vertebral artery, image 313. Lung apices are clear. No pneumothorax. Unremarkable soft tissues. Degenerative changes of the cervical spine. IMPRESSION: 1. 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 2. The carotid arteries are widely patent. 3. Please refer to the CTA head study of same day for additional findings. ACT 112: Negative or not required by law. The above report was generated using voice recognition software. It may contain grammatical, syntax or spelling errors. Electronically signed by: Dalton Padilla M.D. 01/29/2022 3:16 PM Brain MRI 01/29/22 18:30 MRI OF THE BRAIN WITHOUT IV CONTRAST CLINICAL HISTORY: Strokelike symptoms. Vision loss. COMPARISON STUDY: CT of the brain dated 01/29/2022. TECHNIQUE: MRI of the brain was performed utilizing various T1 and T2-weighted sequences in the axial, sagittal, and coronal planes. IV contrast was not administered for this examination. FINDINGS: Brain parenchyma: There is age-related involutional change noting mild subcortical and periventricular microangiopathic disease. There is no hemorrhage or mass effect. There is no restricted diffusion to suggest acute ischemia. Hernandez-white matter differentiation is preserved. No extra-axial fluid collection is seen. The cerebellar tonsils are normal in configuration. Ventricles, sulci, and cisterns: Prominent secondary to involutional change. Pituitary and sella: Unremarkable. Intracranial vasculature: Normal flow voids are maintained at the skull base. Orbits: The bony orbits are grossly intact. Orbital contents are normal in appearance. Sinuses and mastoids: Clear. Calvarium: Unremarkable. Cervical cord: Partially visualized cervical spinal cord is normal in morphology and signal intensity. IMPRESSION: There is no hemorrhage, mass effect, or evidence of acute ischemia. ACT 112: Negative or not required by law. Electronically signed by: Vinod Singh M.D. 01/30/2022 7:23 AM
--- NOTE | 2022-01-30 15:23 | Pharmacy Report ---
- Date of Service January 30, 2022 - Pharmacy CVA/TIA Medication Review Medications to Prevent Stroke handout has been added to the patients discharge packet. Antiplatelet(s) * Dual antiplatelet therapy with Aspirin 81 mg PO qAM + Clopidogrel 75 mg PO qAM x 3 weeks followed by Aspirin daily for life. Cholesterol * High intensity statin: atorvastatin 40 mg daily DVT Prophylaxis * Enoxaparin SQ Therapeutic Anticoagulation * No history of Afib/Aflutter noted Type 2 Diabetes * Patient does not have T2DM
[2022-01-30] MEDS ORDERED: lisinopril 10 MG TAB PO SCH (15:30)
--- NOTE | 2022-01-30 17:37 | Communication Note ---
Date of Service: January 30, 2022 By CMS guidelines, a determination that the admission or continued stay is not medically necessary has been made by a member of the UR committee and willian calderón for this hospital stay, therefore a Code 44 will be completed and the Inpatient admission will be changed to outpatient.
--- NOTE | 2022-01-30 17:59 | Discharge Summary ---
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 Had blurry vision of the right eye which began last , 5 days ago. No headache, no other vision changes. Was referred by ophthalmology. Hypertensive but being allowed for permissive hypertension due to central retinal artery occlusion Blurry vision reading on Saturday night (5 days ago). had a hernandez haze across the right eye only. Saw an optomtrist who was concerned about retinal edema --> retinal specialist. Could not be seen until today. At that appointment had a retinal scan which showed partial retinal occlusion. Recommended standard of care treatment as stroke. Pattern of vision in R eye seems like lacunar of clearing with some haziness like waterdrops on glass. Thinks vision is improved in the cold a little -> more clearing areas. Whole vision is affected. No change in L eye. no other neurologic sx (denies h/a, focal weakness, n/t). 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 Mother had an idiopathic pulmonary fibrosis. Father with Aortic Stenosis. no autoimmune disease. CBC/BMP unremarkable Troponin high-sensitivity 63.6 on admission Medical History: Reviewed Medications: Reviewed Surgical History: Reviewed Allergies: Reviewed Social History: Reviewed Code Status: DNR/DNI. Admission Exam Per Admitting Provider General: A&Ox3. NAD. Cooperative. HEENT: Atraumatic, normocephalic. Pulm: CTAB A&P. -wheezes, -rales, -rhonchi. Symmetrical chest rise. No increase in work of breathing. No respiratory distress. Cardiac: RRR, -mrg. Radial pulses intact and symmetrical. Abdominal: Nontender, nondistended, soft. BS present. CRANIAL NERVES: II: Pupils equal and reactive. R eye with central and peripheral decreased visual acuity with patches across whole visual field. III, IV, : EOM intact, no gaze preference or deviation, no nystagmus. V: normal sensation VII: no asymmetry, no nasolabial fold flattening VIII: normal hearing to speech IX, X: normal palatal elevation, no uvular deviation XI: 5/5 head turn XII: midline tongue protrusion MOTOR: RUE: 5/5 mobile unit assistant strength LUE: 5/5 mobile unit assistant strength RLE: 5/5 to ankle dorsiflexion/plantarflexion LLE: 5/5 to ankle dorsiflexion/plantarflexion SENSORY: Normal to touch in upper and lower extremities without deficit or asymmetry Principal Diagnosis CRAO Discharge Exam Constitutional NAD. Hypertensive. Respiratory CTA bilaterally. No rhonchi, wheezing, or crackles. Non labored breathing. Cardiovascular RRR. No murmur noted. No LE edema. Neurologic No FND noted. Psychiatric Alert. Mood and affect congruent. Discharge Data Allergies Allergy/AdvReac Type Severity Reaction Status Date / Time No Known Allergies Allergy Unverified 01/29/22 15:58 Consultations 01/29/22 14:43 ED Decision to Admit Stat 01/29/22 22:22 Consult Cork Cutter Routine 01/30/22 09:32 Consult Neurology Routine 01/30/22 17:45 Consult [facility] machine binder stripper Routine Ordered Studies 01/29/22 14:08 CT angio head wo/w Stat CT angio neck with con Stat 01/29/22 18:30 MR brain wo con Routine Chest X-Ray 01/29/22 13:48 XR chest 1V portable HISTORY: Atypical Chest Pain COMPARISON: None. FINDINGS: The lungs are clear. Cardiac silhouette is normal in size. No pleural effusions. No pneumothorax. IMPRESSION: No acute process. ACT 112: Negative or not required by law. Electronically signed by: Jack Arriaga M.D. 01/29/2022 2:41 PM Head CTA 01/29/22 14:08 CT angio head wo/w CLINICAL HISTORY: Right eye central retinal artery occlusion. COMPARISON STUDY: No previous studies for comparison. TECHNIQUE: Unenhanced and arterial phase imaging of the head was performed. Intravenous injection of 105 cc Optiray 320 IV was uneventful. Sagittal and coronal reconstructions were viewed as well as maximal intensity projections on an independent 3-D workstation. Automated exposure control was utilized for the study. A dose lowering technique was utilized adhering to the principles of ALARA. FINDINGS: No acute intracranial hemorrhage, midline shift or mass effect is present. Ventricular system is unremarkable. Basal cisterns are patent. There are no extra axial collections. Hernandez-white differentiation is preserved. There are no findings to suggest acute dural sinus thrombosis or acute territorial infarct. Note is made of severe multifocal stenoses within the intracranial vessels. At several locations, there is possible short segment occlusion with distal reconstitution. These stenoses involve the right ophthalmic/retinal artery, left A2 segment, left sylvian branches, distal right vertebral artery and the bilateral posterior cerebral arteries. Multifocal vascular irregularity is noted. There is no intracranial aneurysm. No intraluminal thrombus is identified by CT. No visible plaque is identified by CT. Major dural sinuses are patent. There are no significant calvarial abnormalities. There is minimal ethmoid sinus mucosal thickening. IMPRESSION: 1. No acute intracranial hemorrhage or mass effect. 2. Severe multifocal stenoses versus short segment occlusion with distal reconstitution within numerous intracranial vessels, as detailed above, including the right ophthalmic/retinal arteries. Statistically, this due to atherosclerosis. However, plaque is not evident by CT and therefore other etiologies such as vasculitis or vasospasm cannot be excluded. ACT 112: Negative or not required by law. Electronically signed by: Kunal Cool M.D. 01/29/2022 3:06 PM Neck CTA 01/29/22 14:08 CT angio neck with con CLINICAL HISTORY: 76 years-old Male with crao r eye. Acute strokelike symptom s COMPARISON STUDY: CTA had of same day TECHNIQUE: Following the IV administration of 105 cc of Optiray, CT angiogram of the neck was performed from the aortic arch to the skull base. Images are reviewed in the axial, sagittal, and coronal planes. 3-D MIPS images are created and assessed. IV contrast was administered without complication. All measurements were calculated based on NASCET criteria. A dose lowering technique was utilized adhering to the principles of ALARA. FINDINGS: Imaged opacified pulmonary arterial tree is unremarkable. Atherosclerosis of the thoracic aortic arch. There is patency of the innominate and imaged subclavian arteries. Patent common carotid arteries. Mild atherosclerotic plaque of the left carotid bulb and proximal left ICA without significant stenosis. The internal carotid arteries are otherwise unremarkable and widely patent. Patent and codominant vertebral arteries with atherosclerotic plaque at the origin of the left vertebral artery. 60% focal stenosis of the V4 segment right vertebral artery, image 313. Lung apices are clear. No pneumothorax. Unremarkable soft tissues. Degenerative changes of the cervical spine. IMPRESSION: 1. 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 2. The carotid arteries are widely patent. 3. Please refer to the CTA head study of same day for additional findings. ACT 112: Negative or not required by law. The above report was generated using voice recognition software. It may contain grammatical, syntax or spelling errors. Electronically signed by: Dalton Padilla M.D. 01/29/2022 3:16 PM Brain MRI 01/29/22 18:30 MRI OF THE BRAIN WITHOUT IV CONTRAST CLINICAL HISTORY: Strokelike symptoms. Vision loss. COMPARISON STUDY: CT of the brain dated 01/29/2022. TECHNIQUE: MRI of the brain was performed utilizing various T1 and T2-weighted sequences in the axial, sagittal, and coronal planes. IV contrast was not administered for this examination. FINDINGS: Brain parenchyma: There is age-related involutional change noting mild subcortical and periventricular microangiopathic disease. There is no hemorrhage or mass effect. There is no restricted diffusion to suggest acute ischemia. Hernandez-white matter differentiation is preserved. No extra-axial fluid collection is seen. The cerebellar tonsils are normal in configuration. Ventricles, sulci, and cisterns: Prominent secondary to involutional change. Pituitary and sella: Unremarkable. Intracranial vasculature: Normal flow voids are maintained at the skull base. Orbits: The bony orbits are grossly intact. Orbital contents are normal in appearance. Sinuses and mastoids: Clear. Calvarium: Unremarkable. Cervical cord: Partially visualized cervical spinal cord is normal in morphology and signal intensity. IMPRESSION: There is no hemorrhage, mass effect, or evidence of acute ischemia. ACT 112: Negative or not required by law. Electronically signed by: Vinod Singh M.D. 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 CRAO (central retinal artery occlusion) Low clinical suspicion for GCA; ESR, CRP negative - EKG: NSR, no acute ischemic changes - CTA showed severe multifocal stenosis vs. short segment occlusion with distal reconstitution including right ophthalmic/retinal arteries. No intracranial aneurysm. No intraluminal thrombus is identified by CT. No visible plaque is identified by CT. - MRI brain showed no acute hemorrhage or ischemia - TNKase not administered d/t 3 days from onset of TIA symptoms - Pt began on 10 mg of labetalol, blood pressure not significantly improved, switched to nicardipine drip for titration ability - pt off nicardipine for 12 hrs; transferred to med/surg w/ tele - current BP regimen of lisinopril 10 mg daily, goal systolic 150-160 - Pt on DAPT w/ aspirin and clopidogrel x3 weeks then monotherapy - A1c 5.5 - elevated TG, total cholesterol, and LDL- began 40 mg atorvastatin - outpatient f/u with ophthalmology and PCP recommended - f/u BMP in 2-4 weeks d/t new ACEi Elevated troponin No clinical chest pain or anginal findings, no signs of ACS on admitting EKG Trop peaked at 84, most recent downtrended to 35.8 Echo pending Suspect demand in the setting of hypertension Hypertension Not on baseline antihypertensives Patient hypertension management as above Hyperlipidemia - began 40 mg atorvastatin (2) Elevated troponin: (3) HTN (hypertension): (4) Hyperlipidemia: Total Time Total Time Spent Total Time Spent (In Minutes): >30 Discharge Plan Discharge Items Patient Disposition: Home - Self-Care Reason For Visit: PCRAO Discharge Diagnosis: CRAO Activity: Per Instructions section Non-emergency contact: Primary Care Provider Call non-emergency contact if: you have any medication questions and your symptoms worsen Follow-up/Referrals: Olaf Lenz MD [Primary Care Provider] - Diet: Vegetarian (Lacto-Ovo) Addtl Attending Provider Instructions: You were admitted to the hospital for a central retinal artery occlusion (CRAO) of the right eye. Your CTA showed severe multifocal stenosis vs. short segment occlusion with distal reconstitution including right ophthalmic/retinal arteries. No intracranial aneurysm. No intraluminal thrombus is identified by CT. No visible plaque is identified by CT. MRI of your brain showed no acute hemorrhage or ischemia. You also had a hypertensive urgency requiring a nicardipine drip for which you were sent to the ICU initially. Once able to wean off the drip, you were downgraded from the ICU level of care. To control your blood pressure you will be started on lisinopril 10mg daily. For your CRAO, you were evaluated by Neurology, who recommended starting you on Aspirin 81mg daily, atorvastatin 40mg daily, clopidogrel 75mg daily. You will take both aspirin and clopidogrel for the next 3 weeks, after which you will continue only on aspirin daily. It is recommended that you follow up with your PCP and with [facility] as an outpatient for continued care. At the time of your discharge, an echocardiogram, which was recommended by Neurology, is pending. You may be able to access the result on your [facility] portal or call the hospital for instructions on how to receive this. A discharge summary will be sent to your primary care physician to ensure lion nuity of care. Please bring this discharge summary with you to your next office appointment so that your provider can review it at that time. Medications: Your medication list has been reviewed and reconciled upon discharge to ensure accuracy and continuity of care. An updated list of all your medications is included with your hospital discharge paperwork. Please review this list closely and make note of any changes to your medications. Follow up appointments: - Make a follow up appointment with your PCP within the next week. It is very important that you follow up with them shortly after discharge from the hospital. - As above, you should also follow up with [facility] at their outpatient clinic. - Keep all of your follow up appointments as already scheduled. If you cannot make an appointment, notify your provider. CALL 911 OR GO TO THE EMERGENCY DEPARTMENT if you experience any of the following: - Intractable headache, dizziness nausea, vomiting, weakness, numbness, tingling of your extremities - Sudden, severe abdominal pain or nausea/vomiting - Severe chest pain or chest pain that radiates to your jaw or arm - Sudden, severe shortness of breath or difficulty breathing - Any other severe or concerning symptoms Pending Studies at Discharge: Yes (Echocardiogram) Stand-Alone Forms: My [facility], Smoking Cessation, Medications to Prevent Stroke Medications and DC Order Prescriptions: New clopidogrel 75 mg tablet 75 mg PO QAM 21 Days Qty: 21 0RF atorvastatin 40 mg Tablet 40 mg PO QAM 30 Days Qty: 30 0RF aspirin 81 mg Tablet,Delayed Release (Dr/Ec) 81 mg PO QAM 30 Days Qty: 30 0RF lisinopril 10 mg Tablet 10 mg PO QAM 30 Days Qty: 30 0RF Continued multivitamin Tablet 1 tab PO DAILY cyanocobalamin (vitamin B-12) [Vitamin B-12] 500 mcg Tablet 500 mcg PO DAILY cholecalciferol (vitamin D3) [Vitamin D3] 25 mcg (1,000 unit) Tablet 25 mcg PO DAILY Discharge Orders: Discharge Order (Routine); Ordered 01/30/22 Or[facility] By: [facility] Ad[facility] Data Admit Date/Time: 01/29/22 21:22 Attending Provider: Billy Evans Admit Provider: Donell Zacarias Primary Care Provider: Olaf Lenz Other Providers: Donell Zacarias ; Talib Boogie ; Prosper Ramirez ; Salo Torres ; Annette Maria ; Nancy Mcmullen ; Ismael Saldivar ; Nancy Vallecillo ; Jadiel Rodriguez ; Iman Taylor ; Kash Garcia ; Marleni Murphy ; Deyanira Kim ; Ismael Dunlap Other Interventions: Discharge Summary Assessment (RN) Last Done: 01/30/22 17:45 Supervising Physician Co-Signing Physician Notes I personally examined the patient and verified all escobar points of history and exam, discussed case, and agree with decision making with Dr Canales. Feels about the same as he has since . No visual changes, no waxing and waning, no other neurologic symptoms. Feels okay with going homeand would much prefer to go homejust wants to make sure that he has outpatient follow-up scheduled given that he has had difficulties with this in the past. Extensive discussion on central retinal artery occlusion, atherosclerotic in nature, med management, lifestyle change, secondary risk reduction. He expresses good understanding of all of the above. Vitals noted, in general he is awake and alert pleasant no distress. HEENT normocephalic atraumatic mucous membranes moist. Breathing unlabored no accessory muscle use good effort. Skin shows no rashes no pallor or icterus. Neuro as above. Central retinal artery occlusionischemic strokeappears to be atherosclerotic in nature. Dual antiplatelets for a short time followed by a single antiplatelet as per neurology, and discussed with patient. Atorvastatin 40 mg for both lipid numbers as well as plaque stabilization benefit discussed with patient. Lisinopril for hypertension management. As it relates to his blood pressure, his numbers are certainly not yet under control, but he is showing absolutely no acute symptoms, and his symptoms started 4 days ago with no change since. To that end, after discussion with him, definitely seems reasonable to let him go home. He has a blood pressure cuff at home and will follow his numbers randomly and multiple times throughout the day. We discussed that he will likely need his lisinopril dose to be titrated, but that this can be done with his PCP as an outpatient, and might be more accurate in doing so given that the hospitalization can create a pretty significant "white coat effect". Reached out to his PCP to help facilitate follow-up. We will definitely need a basic metabolic panel in a few weeks. 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 safe/stable for home Resident Activity Tracking Resident Involvement: Resident Care Provided Care Provided: Adult Hospital Medicine
--- NOTE | 2022-01-30 18:54 | XCELERA ---
[id number]
--- NOTE | 2022-01-30 19:31 | Billing Data ---
Date of Service January 30, 2022 Coding Level of Care Code D/C DAY MANAGEMENT >30 MINS
--- NOTE | 2022-01-31 21:21 | Electrocardiogram Report ---
Test Reason : Blood Pressure : / mmHG Vent. Rate : 083 BPM Atrial Rate : 083 BPM P-R Int : 166 ms QRS Dur : 096 ms QT Int : 388 ms P-R-T Axes : 033 -18 061 degrees QTc Int : 455 ms Normal sinus rhythm with sinus arrhythmia Possible Left atrial enlargement Left ventricular hypertrophy Cannot rule out Septal infarct , age undetermined Abnormal ECG No previous ECGs available Confirmed by Travon Woodard ([id number]) on 01/31/2022 9:21:30 PM Referred By: Confirmed By:Travon Woodard
== END 2022-01-30 17:59 | disposition home or self-care (01) | DRG 65 ==
LOC: ED 13:33 → EDINP 16:02 → SUATTDRO 16:02 → EDINP 18:31 → INTOOBSV 21:22 → 1E 22:13 → 4W 01-30 10:39